=== PATIENT | female | born 1995 | race Caucasian/White ===

== ENCOUNTER 2020-01-13 17:14 | Emergency (ER) | payer OTHER, SELFPAY ==
--- NOTE | ~2020-01-13 | XR_ITS ---
EXAMINATION: XR knee RT 3V DATE: 01/13/2020 17:30 INDICATION: Right knee pain TECHNIQUE: Three views of the right knee were obtained. COMPARISON: None. FINDINGS: Alignment is normal. No fracture or osteochondral lesion. Joint spaces are normal with no e rosions. No joint effusion/synovitis. Soft tissues are unremarkable. IMPRESSION: 1. No acute osseous abnormality. Reviewed, dictated and finalized at location A.
[2020-01-13 17:36] VITALS: BP 127/60; PULSE 63; RESP 16; TEMP 36.6; O2SAT 100
--- NOTE | 2020-01-13 17:48 | ED.GENADULT ---
HPI - General Adult General Chief complaint: Extremity Injury, Lower Stated complaint: RT KNEE PAIN Time Seen by Provider: 01/13/20 17:49 Source: patient and RN notes reviewed Mode of arrival: ambulatory Limitations: no limitations History of Present Illness HPI narrative: 24-year-old female presents with complains of right medial knee pain for the past 4 days. Ice and elevation without relief. Ernestine says she was out at the dog park with a family member dog (60 pound pitbull and Occ[place] gonzalez mix) when it ran into the lateral portion of her RT knee when she heard a pop and noted pain and swelling. She continues to have pain to the medial area of the knee now. No radiation of pain. No numbness or tingling, or bleeding. No loss of mobility. Exacerbating factor consist of bearing weight and continuous walking. No fever or chills. Remains active. The patient reports she have not been diagnosed with COVID-19. The patient reports she is not waiting for the results of a COVID-19 lab test. The patient reports she do not have fever, chills, weakness, or fatigue. The patient reports she do not have a new or worsening cough or shortness of breath. Denies chest pain. The patient reports she do not have any rhinorrhea, congestion, sore throat, nausea, vomiting, abdominal pain, and diarrhea. Tolerating po intake well. Denies recent traveling. Denies concerns for COVID-19 or exposures been home with limited outdoor exposure except for essential household needs and return home. At this time, patient is not suspected of having COVID-19. Some parts of this dictation were generated by voice recognition software and may contain typographical and/or grammatical inaccuracies. Related Data Home Medications Medication Instructions Recorded Confirmed meloxicam 7.5 mg DAILY 01/13/20 01/13/20 Allergies Allergy/AdvReac Type Severity Reaction Status Date / Time No Known Allergies Allergy Verified 01/13/20 17:18 Review of Systems Review of Systems: Narrative: CONSTITUTIONAL: Denies fever, chills, sweats. EYES: Denies visual changes, redness, discharge. ENT: Denies rhinorrhea, congestion, sore throat, otalgia. CARDIOVASCULAR: Denies chest pain, palpitations, edema. RESPIRATORY: Denies dyspnea, wheezing, cough. GASTROINTESTINAL: Denies abdominal pain, nausea, vomiting, diarrhea. GENITOURINARY: Denies dysuria, hematuria, abnormal discharge SKIN: Denies rash or itching. MUSCULOSKELETAL: Denies acute back pain or myalgia. Complains of Right medial knee pain. NEUROLOGIC: Denies numbness or focal weakness. PSYCHIATRIC: Denies anxiety or depression. All other systems reviewed & are unremarkable except as noted in HPI and below. [facility] Past Medical History Medical History (Updated 01/14/20 @ 00:00 by Dori Meier) Knee pain Surgical History Surgical History (Updated 01/13/20 @ 17:58 by PITO Ross) History of arthroscopic knee surgery LT Knee Family History Family History (Updated 01/13/20 @ 18:00 by PITO Ross) Father Alive and well Mother Diabetes mellitus Hypertension Grandparent Breast cancer Arthritis Ovarian cancer Social History Social History (Updated 01/13/20 @ 18:00 by PITO Ross) Smoking status: Never smoker Alcohol intake: current Substance use: never Living arrangements: with family Occupation/Education: occupation Gender identity (if verbalized by the patient): Female Comments At time of signature, agree with nurse past medical, surgical, social, and family history. There is no relevant family history pertinent to the presenting complaint. Exam Narrative: Exam Narrative: GENERAL: This is a well-nourished, well-developed patient, in no apparent distress. Talks in full sentences and ambulates with steady gait without dyspnea. HEAD: normocephalic, atraumatic. EYES: PERRL. Sclera clear/white. Vision is grossly intact. CARDI
== END 2020-01-13 18:03 | disposition home or self-care (01) ==
PROVIDERS: Emergency Provider Nurse Practitioner Family
DX: S83.91XA Sprain of unspecified site of right knee, initial encounter (principal); W54.1XXA Struck by dog, initial encounter
CPT/HCPCS: 73562; 99213; G0463

== ENCOUNTER 2020-10-02 10:13 | Outpatient (CLI) | payer BC, MEDICAID, SELFPAY ==
--- NOTE | ~2020-10-02 | MR_ITS ---
EXAMINATION: MR knee LT wo con DATE: 10/02/2020 11:12 INDICATION: Left knee pain TECHNIQUE: Magnetic resonance imaging (MRI) of the left knee was performed without intravenous contra st. Sequences included coronal PD-weighted FSE, coronal PD-weighted FS FSE, sagittal T2-weighted FSE , sagittal PD-weighted FS FSE and axial PD weighted fat saturated FSE. COMPARISON: Left knee radiographs dated 09/21/2020 FINDINGS: Medial compartment: Medial meniscus is normal. Articular cartilage is normal. Lateral compartment: Lateral meniscus is normal. Articular cartilage is normal. Patellofemoral compartment: Deep chondral ulceration with mild underlying cortical irregularity and minimal subarticular cystic c hange at the inferior aspect of the lateral patellar facet. Chondral fissuring at the inferomedial as pect of the lateral trochlea and inferior aspect of the trochlear groove. Ligaments and tendons: Anterior and posterior cruciate ligaments are normal. The medial collateral ligament and fibular fide ateral ligament complex are normal. There is likely postoperative scarring with a few foci susceptibi lity artifact along the medial patellar retinaculum. Patellar tendon and quadriceps tendon are normal . The visualized medial and lateral hamstring tendons as well as the iliotibial band are normal. Fluid: Physiologic amount of fluid in the joint space. No loose osteochondral bodies identified. Osseous/other: Normal marrow signal centimeters noted mild subarticular changes at the lateral patellar facet. No fr acture or pathologic marrow replacing process. IMPRESSION: 1. 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 2. Postoperative changes along the medial patellar retinaculum. Correlate with surgical history. Reviewed, dictated and finalized at location B. IMPRESSION: 1. Mild patellofemoral osteoarthritis with high-grade chondromalacia the latera l patellar facet and moderate grade trochlear chondromalacia. 2. Postoperative changes along the medial patellar retinaculum. Correlate with surgical history.
== END 2020-10-02 10:14 | disposition home or self-care (01) ==
LOC: ANHIMG 10:19
PROVIDERS: Visit Provider Orthopaedic Surgery
DX: M17.12 Unilateral primary osteoarthritis, left knee (principal)
CPT/HCPCS: 73721

== ENCOUNTER → 2020-10-31 01:54 | Outpatient (CLI) | payer BC, SELFPAY ==
[2020-11-01 14:52] LABS: SARS-CoV-2 RNA PCR Negative
== END ==
PROVIDERS: Visit Provider Orthopaedic Surgery
DX: Z01.812 Encounter for preprocedural laboratory examination (principal); Z20.822 Contact with and (suspected) exposure to COVID-19
CPT/HCPCS: C9803; U0003; U0005

== ENCOUNTER 2020-11-04 01:15 | Day surgery (SDC) | payer BC, MEDICAID, SELFPAY ==
[2020-10-26 13:21] VITALS: BMI 34.0
[2020-11-04] VITALS (8 sets, daily range): BP systolic 112–137; BP diastolic 66–82; PULSE 50–71; RESP 12–16; TEMP 36.8–37.2; O2SAT 100
--- NOTE | 2020-11-04 07:21 | WPDHPUPDATE1 ---
History and Physical Update Update Date/Time: 11/04/20 07:21 History and Physical has been reviewed, including an updated exam of the patient. There are NO changes in the patient's condition. Risks, benefits, and alternatives have been discussed and questions answered. Patient agrees to proceed with procedure.
[2020-11-04] MEDS: CELECOXIB 200 MG CAPSULE PO (08:43)
[2020-11-04] MEDS: ACETAMINOPHEN 500 MG TABLET 1000 MG PO (08:43)
--- NOTE | 2020-11-04 08:50 | WPDANESEPPF ---
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 Patient Data Age: 25 Gender: F Height: 5 ft 4 in Weight: 90 kg Last Vital Signs Temp 36.8 C 11/04/20 08:31 Pulse 71 11/04/20 08:31 Resp 16 11/04/20 08:31 BP 137/81 11/04/20 08:31 Pulse Ox 100 11/04/20 08:31 Allergies Allergy/AdvReac Type Severity Reaction Status Date / Time No Known Allergies Allergy Verified 11/04/20 08:38 Home Medications Medication Instructions Recorded Confirmed Type drospirenone 3 mg-ethinyl 1 tablet PO DAILY 09/21/20 11/04/20 History estradiol 0.02 mg tablet Patient hx anesthesia problems: post op nausea/vomiting Family hx anesthesia problems: none PMFSH Past Medical History Medical History Arthritis GERD (gastroesophageal reflux disease) History of adverse reaction to anesthesia History of MRSA infection Knee pain Left knee pain Surgical History Surgical History History of arthroscopic knee surgery LT Knee 2010, 2015, 2015 History of tonsillectomy 2002 Family History Family History Father Alive and well Mother Diabetes mellitus Hypertension Grandparent Breast cancer Arthritis Ovarian cancer Social History Social History Smoking status: Never smoker Alcohol intake: never Substance use: never Substance use type: does not use Living arrangements: with family Gender identity (if verbalized by the patient): Female Sexual Orientation (if Verbalized by the Patient): Straight or Heterosexual Spiritual care concerns: No Anes - Eval Final PreProcedure Day of Procedure 11/04/20 08:50 Patient weight: obese Heart: regular rate and rhythm Lungs: clear to auscultation Airway: Mallampati scale class II Neurological: alert and oriented Last oral intake: >/= 8 hours ASA classification: II Emergent: no Anesthetic plan: proceed Anesthesia type and monitoring: general LMA and standard monitoring Informed Consent: The patient's anesthetic plan and its attendant risks and benefits were discussed with the patient/family/POA. Questions were solicited and answers provided to the satisfaction of the patient/family/POA.
[2020-11-04] MEDS: LACTATED RINGERS 1,000 ML 30 ML IV CONT (09:05)
[2020-11-04] MEDS: SCOPOLAMINE 1.5 MG PATCH TRANSDERM (09:06)
--- NOTE | 2020-11-04 10:28 | SUR.PREOP ---
pt informed delay in procedure.
[2020-11-04] MEDS: ceFAZolin 2 GM/D5W 50 ML 2 GM/50 ML BAG IVPB (12:00)
[2020-11-04] MEDS: BUPIVACAINE HCL 0.5% PF 30 ML VIAL INFILTRATE (12:35)
--- NOTE | 2020-11-04 13:06 | PM.PROC ---
Procedure Note - Detailed Date of procedure: 11/04/20 Pre-op diagnosis: left knee patella femoral chondromalachia Post-op diagnosis: same Procedure performed: LEFT KNEE SCOPE WITH CHONDROPLASTY, LATERAL RELEASE AND MINOR SYNOVECTOMY Description of procedure: PATIENT WAS TAKEN TO THE OR. LEFT LEG WAS PREPPED AND DRAPED STERILE. TROCARS WERE PLACED IN THE USUAL FASHION. CAMERA WAS INTRODUCED. THERE WAS SEVERE CHONDROMALACIA TO THE PATELLA FEMORAL JOINT. MOST OF THE LESION WAS ON THE PATELLAR SURFACE THERE WAS A LOT OF SYNOVITIS IN THIS COMPARTMENT WELL. THE MEDIAL COMPARTMENT SHOWED NO CHONDROMALACIA TO THE MED FEMORAL CONDYLE AND NO MEDIAL MENISCUS TEAR. THE ACL WAS INTACT. THE LATERAL MENISCUS WAS NOT TORN. THE LATERAL COMPARTMENT HAD NO CHONDROMALACIA. A SYNOVECTOMY WAS PREFORMED IN THE PATELLO FEMORAL JOINT THEN THE PATELLA AND TROCHLEA UNDERWENT CHONDROPLASTY. THE SURFACE WAS SMOOTH. PATELLO FEMORAL TRACKING WAS PREFORMED. THERE WAS SIGNIFICANT MAL TRACKING WITH THE LATERAL FACET TRACKING LATERAL TO THE TROCHLEA. A LATERAL RETINACULAR RELEASE WAS THEN PREFORMED FROM PROXIMAL TO DISTAL. TRACKING WAS RESTORED TO NEAR NORMAL WITH NO TILT. BLEEDERS WERE CAUTERIZED. THE INSTRUMENTS WERE REMOVED AFTER THOROUGH IRRIGATION OF THE KNEE JOINT. THE WOUNDS WERE APPROXIMATED WITH 4.0 NYLON. STERILE DRESSING WAS APPLIED. PATIENT WAS EXTUBATED. Anesthesia: GLMA Surgeon: Armando Morris MD Estimated blood loss (mL): 5 Complications: No immediate complications Condition: stable Disposition: PACU
[2020-11-04] MEDS: fentaNYL CITRATE INJ (*CRX) 100 MCG/2 ML VIAL 25 MCG IV PUSH ×7 (13:24→13:56)
[2020-11-04] MEDS: oxyCODONE HCL (*CRX) 5 MG TAB IR PO (14:22)
== END 2020-11-04 15:02 | disposition home or self-care (01) ==
PROVIDERS: Visit Provider Orthopaedic Surgery
PROC: (CPT 29870; principal; 2020-11-04 10:30)
DX: M94.262 Chondromalacia, left knee (principal); M65.862 Other synovitis and tenosynovitis, left lower leg; E66.9 Obesity, unspecified; Z68.34 Body mass index [BMI] 34.0-34.9, adult
CPT/HCPCS: 29873; A9270; J0690; J1100; J2250; J2405; J2704; J3010; J7120

== ENCOUNTER 2020-11-07 16:19 | Emergency (ER) | payer BC, MEDICAID, SELFPAY ==
[2020-11-07 16:27] VITALS: BP 179/87; PULSE 86; RESP 18; TEMP 36.3; O2SAT 100
--- NOTE | 2020-11-07 19:18 | ED.EXTPRO ---
HPI - Extremity Problem General Chief complaint: Extremity Problem,Nontraumatic Stated complaint: possible DVT on left leg Time Seen by Provider: 11/07/20 18:27 Source: patient Mode of arrival: ambulatory Limitations: no limitations History of Present Illness HPI Narrative: This is a 25-year-old female that presents the emergency department for left lower extremity swelling present since her recent surgery. Reports she had an arthroscopy on her left knee. Reports she has had swelling since the surgery, but today the swelling persisted even after elevating her leg. She called her orthopedic doctor who recommended she come to the ER to rule out a blood clot. Does also report pain in her calf. Denies fever, erythema, or warmth. Related Data Home Medications Medication Instructions Recorded Confirmed drospirenone 3 mg-ethinyl 1 tablet PO DAILY 09/21/20 11/07/20 estradiol 0.02 mg tablet aspirin 81 mg PO DAILY 11/07/20 11/07/20 Allergies Allergy/AdvReac Type Severity Reaction Status Date / Time No Known Allergies Allergy Verified 11/07/20 18:13 Review of Systems Review of Systems: Narrative: CONSTITUTIONAL: Denies fever SKIN: Denies rash MUSCULOSKELETAL: Reports joint pain, and myalgia. NEUROLOGIC: Denies numbness All systems reviewed & are unremarkable except as noted in HPI and below PMFSH Past Medical History Medical History Arthritis GERD (gastroesophageal reflux disease) History of adverse reaction to anesthesia History of MRSA infection Knee pain Left knee pain Surgical History Surgical History History of arthroscopic knee surgery LT Knee 2010, 2015, 2015 History of tonsillectomy 2002 Family History Family History Father Alive and well Mother Diabetes mellitus Hypertension Grandparent Breast cancer Arthritis Ovarian cancer Social History Social History Smoking status: Never smoker Alcohol intake: never Substance use: never Substance use type: does not use Gender identity (if verbalized by the patient): Female Spiritual care concerns: No Exam Narrative: Exam Narrative: GENERAL: Well-appearing, obese, and in no acute distress. HEAD: Normocephalic, atraumatic. EYES: EOMI. CHEST: Clear to auscultation. No respiratory distress. No wheezes rales or rhonchi HEART: Regular rate and rhythm. No murmur heard. Normal peripheral pulses. EXTREMITIES: Normal range of motion. Moderate edema about the left lower leg and into the foot. No erythema or warmth. Normal DP pulses. Normal sensation SKIN: Warm, dry, no rash. NEURO: No focal deficits. Alert and oriented x3. PSYCH: Normal mood and affect Course Vital Signs Vital signs: Vital Signs Temperature 97.4 F L 11/07/20 16:27 Pulse Rate 86 11/07/20 16:27 Respiratory Rate 18 11/07/20 16:27 Blood Pressure 179/87 H 11/07/20 16:27 Pulse Oximetry 100 11/07/20 16:27 Temperature 97.4 F L 11/07/20 16:27 Pulse Rate 61 11/07/20 19:23 Respiratory Rate 16 11/07/20 19:23 Blood Pressure 135/82 11/07/20 19:23 Pulse Oximetry 100 11/07/20 19:23 MDM - Extremity (Nontraumatic) MDM Narrative Medical decision making narrative: Patient presents the emergency department for left lower extremity edema and calf pain. She denies any chest pain or shortness of breath. Oxygen saturation is normal on room air. Her heart rate is normal. Recently had a arthroscopic surgery on the left knee. She is afebrile and nontoxic-appearing. Vitals are stable. No erythema or warmth of the leg to suggest infection. CBC is without leukocytosis. Metabolic panel without concerning findings. Her D-dimer was elevated. We will give her dose of Lovenox in the ED and set her up for an ultraso
[2020-11-07 19:23] VITALS: BP 135/82; PULSE 61; RESP 16; O2SAT 100
[2020-11-07 19:36] LABS: Basophils Percent Auto 0.3 % (0.2-1.2); Eosinophils Absolute Auto 0.1 K/mm3 (0-0.3); Hematocrit 39.4 % (37.0-47.0); Hemoglobin 13.1 g/dL (12.0-15.0); Immature Granulocyte Absolute 0.02 K/mm3 (0.00-0.031); Immature Granulocyte Percent A 0.2 % (0-0.5); Lymphocytes Absolute Auto 3.99 K/mm3 (0.9-3.2); Lymphocytes Percent Auto 40.9 % (18.3-44.2); Mean Corpuscular HGB Conc 33.2 g/dl (32-36); Mean Corpuscular Hemoglobin 29.8 pg (26-34); Mean Corpuscular Volume 89.7 fl (80-100); Mean Platelet Volume 9.7 fl (7.4-10.4); Monocytes Absolute Auto 0.5 K/mm3 (0.1-0.6); Neutrophils Absolute Auto 5.1 K/mm3 (1.3-6.7); Neutrophils Percent Auto 52.6 % (45.5-73.1); Platelet Count Result 398 k/mm3 (150-375); Red Blood Count 4.39 M/mm3 (4.2-5.4); Red Cell Distribution Width 12.6 % (11.5-14.5); White Blood Count 9.8 K/mm3 (4.5-10.0)
--- NOTE | 2020-11-07 19:39 | PC.NURSE ---
brooklynn states to hold lovenox until pt ddimer has resulted.
[2020-11-07 19:45] LABS: Anion Gap 8 mmol/L (8-16); Blood Urea Nitrogen 10 mg/dL (7-17); Calcium 9.4 mg/dL (8.4-10.2); Carbon Dioxide 23 mmol/L (22-30); Chloride 108 mmol/L (98-107); Estimated CRCL calculation 135 ml/min; Estimated Glomerular Filt Rate > 60; Glucose 87 mg/dL (65-105); Sodium 139 mmol/L (137-145)
[2020-11-07 19:46] LABS: INR 0.9
[2020-11-07 19:47] LABS: Partial Thromboplastin Time 22.2 SECONDS (22.3-36.8)
[2020-11-07 19:49] LABS: D Dimer 1.27 ug/mL (<0.48)
[2020-11-07] MEDS: ENOXAPARIN 100 MG/ML SYRINGE 90 MG SUB-Q (20:14)
[2020-11-07 20:40] VITALS: BP 131/75; PULSE 58; RESP 16; TEMP 36.7; O2SAT 100
== END 2020-11-07 20:42 | disposition home or self-care (01) ==
PROVIDERS: Physician Assistant; Emergency Provider Emergency Medicine
DX: M79.89 Other specified soft tissue disorders (principal); M19.90 Unspecified osteoarthritis, unspecified site; K21.9 Gastro-esophageal reflux disease without esophagitis
CPT/HCPCS: 36415; 80048; 85025; 85380; 85610; 85730; 96372; 99283; J1650

== ENCOUNTER 2020-11-08 07:22 | Outpatient (CLI) | payer BC, MEDICAID, SELFPAY ==
--- NOTE | ~2020-11-08 | US_ITS ---
US venous doppler [facility] DATE: 11/08/2020 08:17 INDICATION: Left calf pain and swelling. Recent left lateral patellar release. TECHNIQUE: Real-time and color flow imaging and Doppler analysis of the veins of the left lower extre mity COMPARISON: None FINDINGS: The left greater saphenous vein is patent. There is spontaneous and phasic flow and normal augmentation and color flow signal of the left common femoral, femoral, popliteal and peroneal veins in one of 2 paired posterior tibial veins. IMPRESSION: Deep venous thrombosis involving one of 2 paired posterior tibial veins Reviewed, dictated and finalized at Location A. Reviewed, dictated and finalized at location A. IMPRESSION: Deep venous thrombosis involving one of 2 paired posterior tibial v eins
== END 2020-11-08 07:23 | disposition home or self-care (01) ==
PROVIDERS: Visit Provider Orthopaedic Surgery
DX: M79.89 Other specified soft tissue disorders (principal); I82.442 Acute embolism and thrombosis of left tibial vein
CPT/HCPCS: 93971

== ENCOUNTER 2021-03-04 07:30 | Outpatient (RCR) | payer BC, MEDICAID, SELFPAY ==
--- NOTE | 2020-12-09 14:08 | PTOPEVAL ---
PHYSICAL THERAPY EVALUATION AND PLAN OF CARE Thank you for referring Ernestine James to [facility].? The patient is scheduled to be seen for therapy? 2x/week for 4 weeks. Please review, sign, date and return this plan of care ROMARIO. I agree with and certify that the following plan of care is medically necessary. Referring Physician Date Attending Provider: Armando Morris MD Evaluation Outpatient Past Medical History Cardiovascular History Hx Hypercholesterolemia Yes: ELEVATED LABS Respiratory History Hx Asthma Yes: IN CHILDHOOD Gastrointestinal History Hx Gastroesophageal Reflux Disease Yes Musculoskeletal History Hx Arthritis Yes: L KNEE Hx Orthopedic Surgery Yes: LT KNEE SCOPES X3 Hx Other Musculoskeletal Disorders Yes: LT PATELLA MISALIGNMENT, CARTILAGE WEAR Reproductive History Hx Other Reproductive Disorders Yes: PCOS Psychosocial History Hx Anxiety Yes Pain History History of Any Previous or Ongoing No Significant History Instance of Pain Anesthesia History Hx Post-Op Nausea/Vomiting Yes Diagnosis left arthroscopy with lateral release Subjective Information Ernestine is here today 1 Query Text:As Reported By Patient/ month s/p left knee Family arthroscopy with lateral release. States that the pain is at the bottom of the knee which happens when she going down stairs and when walking too much. States that when she does a lot of sit to stand or bending to straightening she feels the knee cap wanting to shift to the side. Self Report Pain Assessment Left Knee(s) Reported Pain Level 0 Pain Frequency Acute,Intermittent Lowest Pain Intensity 0 Greatest Pain Intensity 7 Pain Aggravating Factors Stair Climbing,Walking Pain Score Pain Score 0: Self Report Interventions Used Interventions Used By Clinicians Exercise,Taping Pain Relief Interventions Used By Medication Patient Other Alleviating Interventions ibuprofen, tylenol Lower Extremity Range of Motion Knee Range of Motion Left Knee Flexion Range of Motion - Active 122 Knee Extension Range of Motion - Active 0 Query Text: Lower Extremity Muscle Strength Testing Hip Strength Left Hip Flexion Strength 5 Normal Hip Extension Strength 4 Good Hip Abduction Strength 4 Good Hip Medial Rotation Strength 4 Good Hip Lateral Rotation Strength 4 Good Knee Strength
--- NOTE | 2021-01-11 11:46 | PTOPEVAL ---
PHYSICAL THERAPY PROGRESS REPORT AND PLAN OF CARE UPDATE Thank you for referring Ernestine James to [facility] [place].? The patient is scheduled to be seen for therapy?1-2x/week for 4 weeks. Please review, sign, date and return this plan of care ROMARIO. I agree with and certify that the following plan of care is medically necessary. Referring Physician Date Attending Provider: Armando Morris MD Progress Diagnosis left arthroscopy with lateral release Subjective Information Ernestine is here today 2 Query Text:As Reported By Patient/ month s/p left knee Family arthroscopy with lateral release. States that she has having pain in the tendons and there is popping in the tendon across the front of the knee that can be painful and uncomfortable. Straightening is better, but there is pain with bending now. Pain Assessment Timing of Pain Assessment Timing of Pain Assessment Re-assessment Self Report Self Report Pain Level 0 Campos-Martinez Campos-Martinez Pain Scale No Pain Pain Score Pain Score No Pain: Campos Martinez Lower Extremity Range of Motion Knee Range of Motion Left Knee Flexion Range of Motion - Active 129 Knee Extension Range of Motion - Active 0 Query Text: Lower Extremity Muscle Strength Testing Hip Strength Left Hip Flexion Strength 5 Normal Hip Extension Strength 4+ Good + Hip Abduction Strength 4 Good Hip Medial Rotation Strength 4+ Good + Hip Lateral Rotation Strength 4+ Good + Knee Strength Left Knee Flexion Strength 4+ Good + Knee Extension Strength 4+ Good + Knee Strength Comments good quad set Muscle Length Testing Muscle Length Testing Piriformis w/Hip Flexion >90 Degrees (R) Mild Tightness Tisha's Test Hip Muscle Length (R) Mild Tightness,(L) Moderate Tightness Left Hamstring Length -25 Query Text:(90 - 90 Position) Right Hamstring Length -25 Query Text:(90 - 90 Position) Palpation Assessment Palpation Palpation improved patellar mobility General Exercise General Exercises Side Left Exercise Location knee Exercise Type Active,Isometric,Resistive, Stretching Exercise Description -sitting piriformis stretch Query Text:Record Sets, Reps, [id number] each side Resistance, and Position - sidelying hip adduction [id number] - sumo squat with education on
--- NOTE | 2021-02-02 17:12 | PCPTNOTE ---
Patient called & cancelled scheduled appointment for tomorrow due to testing positive for COVID.
--- NOTE | 2021-03-04 08:25 | PTOPEVAL ---
PHYSICAL THERAPY PLAN OF CARE UPDATE AND PROGRESS REPORT Thank you for referring Ernestine James to [facility].? The patient is scheduled to be seen for therapy? 2x/week for 4 weeks. Please review, sign, date and return this plan of care ROMARIO. I agree with and certify that the following plan of care is medically necessary. Referring Physician Date Attending Provider: Armando Morris MD Progress Diagnosis left arthroscopy with lateral release Subjective Information Ernestine is here today 4 Query Text:As Reported By Patient/ month s/p left knee Family arthroscopy with lateral release. States that the most of the pain she has right now is at the patellar tendon. 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 Pain Score Pain Score 0: Self Report Lower Extremity Range of Motion Knee Range of Motion Left Knee Flexion Range of Motion - Active 130 Knee Extension Range of Motion - Active 0 Query Text: Lower Extremity Muscle Strength Testing Hip Strength Left Hip Flexion Strength 5 Normal Hip Extension Strength 5 Normal Hip Abduction Strength 4+ Good + Hip Medial Rotation Strength 5 Normal Hip Lateral Rotation Strength 5 Normal Knee Strength Left Knee Flexion Strength 5 Normal Knee Extension Strength 5 Normal Knee Strength Comments good quad set Palpation Assessment Palpation Palpation good patellar mobility - trigger points noted to lateral quad Gait Assessment Gait Pattern Assessment Gait Pattern Trendelenburg Gait Stair Climbing Assessment Stair Climbing Assessment Technique Alternating Steps Stair Climbing Direction Both Up and Down Stair Climbing Ability Independent Stair Climbing Comments states she is working to keep left femur in neutral position while descending stairs; mild decrease in quadriceps eccentric control General Exercise General Exercises Side Left Exercise Location knee Exercise Type Active,Resistive Exercise Description -standing hydrants with pelvic Query Text:Record Sets, Reps, rotation green band at knee - Resistance, and Position to be performed on both sides
--- NOTE | 2021-03-09 10:27 | PCPTNOTE ---
Patient called & cancelled scheduled appointment this date due to running behind from class and then got pulled over. Has attempted to call stated to have difficulty getting through.
--- NOTE | 2021-03-11 09:09 | PCPTNOTE ---
This treatment is being continued on visit number [id number]. Please see documentation on both accounts to view progress. Completed interventions, outcomes, and problems have been marked as Inactive to facilitate the copying of the Care plan routine for recurring accounts.
== END 2021-03-09 23:59 | disposition home or self-care (01) ==
LOC: ANHPT 07:30
PROVIDERS: Visit Provider Orthopaedic Surgery
DX: Z48.89 Encounter for other specified surgical aftercare (principal)
CPT/HCPCS: 97110; 97140; 97161

== ENCOUNTER 2021-03-09 15:12 | Outpatient (CLI) | payer BC, SELFPAY ==
--- NOTE | ~2021-03-09 | US_ITS ---
EXAMINATION: US venous doppler [facility] DATE: 03/09/2021 16:09 INDICATION: Acute embolism and thrombosis of unspecified deep veins TECHNIQUE: Valdez scale images without and with compression and Doppler images of the left lower extrem ity veins were obtained. COMPARISON: 11/08/2020 FINDINGS: The left common femoral vein, profunda femoral vein, femoral vein, popliteal vein, peroneal trunk, posterior tibial veins, and greater saphenous vein are patent. IMPRESSION: 1. Patent left lower extremity veins. No evidence of deep venous thrombosis. Reviewed, dictated and finalized at location A.
== END 2021-03-09 15:13 | disposition home or self-care (01) ==
LOC: ANHIMG 15:15
PROVIDERS: Visit Provider Nurse Practitioner
DX: I82.402 Acute embolism and thrombosis of unspecified deep veins of left lower extremity (principal)
CPT/HCPCS: 93971

== ENCOUNTER 2021-04-01 10:00 | Outpatient (RCR) | payer BC, SELFPAY ==
--- NOTE | 2021-03-11 09:08 | PCPTNOTE ---
The treatment documented on this account is a continuation of the treatment documented on visit number [id number]. Please see documentation on both accounts to view progress. The Plan of Care has been transitioned and updated within the new V#. I have addressed and agree with the discipline specific Problems, Interventions, and Goals for the current certification period. Completed interventions, outcomes, and problems have been marked as Inactive to facilitate the copying of the Care plan routine for recurring accounts.
--- NOTE | 2021-04-01 10:38 | PTOPEVAL ---
PHYSICAL THERAPY DISCHARGE NOTE Thank you for referring Ernestine James to [facility].? Please review, sign, date and return this plan of care ROMARIO. I agree with and certify that the following plan of care is medically necessary. Referring Physician Date Attending Provider: Armando Morris MD Discharge Diagnosis left arthroscopy with lateral release Subjective Information States that overall symptoms Query Text:As Reported By Patient/ are doing much better - there Family is some soreness in the tendon but it is ok. Stairs are more difficult and better when she has K-tape on the knee. The right knee is actually hurting more than the left - describes the pain to be medial and with walking and stairs - not with resting. Pain Assessment Timing of Pain Assessment Timing of Pain Assessment Assessment Self Report Self Report Pain Level 0 Pain Score Pain Score 0: Self Report Lower Extremity Muscle Strength Testing Hip Strength Left Hip Flexion Strength 5 Normal Hip Extension Strength 4+ Good + Hip Abduction Strength 5 Normal Knee Strength Bilateral Knee Flexion Strength 5 Normal Knee Extension Strength 5 Normal Muscle Length Testing Muscle Length Testing Left Hamstring Length -25 Query Text:(90 - 90 Position) Right Hamstring Length -25 Query Text:(90 - 90 Position) Palpation Assessment Palpation Palpation good patellar mobility - trigger points noted to lateral quad Gait Assessment Gait Pattern Assessment Gait Pattern No Deviations/Normal PT Clinical Summary Ernestine is a 25 yo female presenting to outpatient physical therapy s/p left knee arthroscopy and lateral release. She has met her goals at this time. She is independent in HEP and understands how to use leukotape and k-tape to assist in manageing pain. We will discharge from PT at this time . PT Services Indicated Yes Rehabilitation Potential Good Patient/Caregiver's Personal Goals for rehab well Rehabilitation Potential Barriers to Goal Achievements None [place]
== END 2021-04-02 08:43 | disposition home or self-care (01) ==
LOC: ANHPT 10:00
PROVIDERS: Visit Provider Orthopaedic Surgery
DX: Z48.89 Encounter for other specified surgical aftercare (principal); M23.92 Unspecified internal derangement of left knee
CPT/HCPCS: 97110

== ENCOUNTER 2021-07-01 15:50 | Emergency (ER) | payer BC, MEDICAID, SELFPAY ==
--- NOTE | ~2021-07-01 | XR_ITS ---
EXAMINATION: XR ankle RT min 3V EXAM DATE: 07/01/2021 16:09 INDICATION: Pain lat Rt ankle; twisted ankle 2 days ago. TECHNIQUE: Right ankle frontal, lateral and oblique projections obtained and reviewed. There is no p rior study for comparison. FINDINGS: The right ankle mortise appears intact. There are no acute fractures or dislocations iden tified. There is no subcutaneous gas. The soft tissue is unremarkable. There are no radiopaque fo reign bodies. IMPRESSION: No acute osseous findings. Reviewed, dictated and finalized at location A. UNITY ENGAGEMENT REPRESENTATIVE IMPRESSION: No acute osseous findings.
--- NOTE | 2021-07-01 15:56 | ED.LOWEXIN ---
HPI - Extremity Injury (Lower) General Chief Complaint: Extremity Injury, Lower Stated Complaint: R ankel pain Time Seen by Provider: 07/01/21 15:56 Source: patient and RN notes reviewed History of Present Illness HPI Narrative: Patient is a 26-year-old female who presents the urgent care with a right pain 2 days ago after she curb. Patient has placed ice on the ankle and use Tylenol/ibuprofen and elevation. Patient dates that her pain increases with weightbearing and flexion. No other acute complaints or injuries. No acute distress noted patient on the plan of care. Some parts of this dictation were generated by voice recognition software and may contain typographical and/or grammatical inaccuracies. Related Data Home Medications Medication Instructions Recorded Confirmed medroxyprogesterone 150 mg/mL mg IM 02/08/21 05/11/21 intramuscular syringe Allergies Allergy/AdvReac Type Severity Reaction Status Date / Time No Known Allergies Allergy Verified 05/25/21 13:06 Review of Systems Review of Systems: CONSTITUTIONAL: Denies fever, chills, or sweats. EYES: Denies visual changes, redness, or discharge. ENT: Denies rhinorrhea, congestion, sore throat, or otalgia. CARDIOVASCULAR: Denies chest pain, palpitations, or edema. RESPIRATORY: Denies cough or dyspnea. GASTROINTESTINAL: Denies abdominal pain, nausea, vomiting, or diarrhea. GENITOURINARY: Denies dysuria or hematuria. SKIN: Denies rash or itching. MUSCULOSKELETAL: Reports of right ankle pain NEUROLOGIC: Denies headache, numbness, or weakness. All other systems reviewed are negative, except as documented in HPI. [facility] Past Medical History Medical History Anxiety Arthritis Chronic headache disorder DVT (deep venous thrombosis) GERD (gastroesophageal reflux disease) History of adverse reaction to anesthesia History of MRSA infection Knee pain Polycystic ovarian syndrome Surgical History Surgical History History of arthroscopic knee surgery LT Knee 2010, 2015, 2015 History of tonsillectomy 2002 Family History Family History Father Thyroid disorder Mother Diabetes mellitus Hypertension Grandparent Breast cancer Arthritis Ovarian cancer Sibling Depression Anxiety Thyroid disorder Social History Social History Smoking status: Never smoker Alcohol intake: current Alcohol use details: occasional Substance use: never Substance use type: does not use 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 There is no relevant family history pertinent to the patient complaint. Exam Narrative: GENERAL: This is a well-nourished, well-developed patient, in no apparent distress. HEAD: normocephalic, atraumatic. EYES: PERRL. Sclera clear/white. Vision is grossly intact. EARS: External ears normal NOSE: External nose normal with no obvious nasal discharge, nares without redness, no rhinorrhea. THROAT: Mucous membranes moist, posterior pharynx clear. NECK: Neck supple CARDIOVASCULAR: Regular rate and rhythm without murmurs, gallops, or rubs. RESPIRATORY: Clear to auscultation. Breath sounds equal bilaterally. No wheezes, rales, or rhonchi. SKIN: warm, intact with no suspicious lesions or rash, good texture and turgor. NEURO: awake, alert, and oriented to person, place and time. There were no obvious focal neurologic abnormalities. EXTREMITIES: No obvious edema, ecchymosis or erythema noted to the right malleolus
[2021-07-01 15:58] VITALS: BP 151/76; PULSE 91; RESP 16; TEMP 36.7; O2SAT 100
== END 2021-07-01 16:42 | disposition home or self-care (01) ==
PROVIDERS: Emergency Provider Nurse Practitioner Family; PCP Family Medicine
DX: S93.401A Sprain of unspecified ligament of right ankle, initial encounter (principal); S96.911A Strain of unspecified muscle and tendon at ankle and foot level, right foot, initial encounter; X58.XXXA Exposure to other specified factors, initial encounter; M19.90 Unspecified osteoarthritis, unspecified site; Z86.718 Personal history of other venous thrombosis and embolism; K21.9 Gastro-esophageal reflux disease without esophagitis; Z86.14 Personal history of Methicillin resistant Staphylococcus aureus infection; E28.2 Polycystic ovarian syndrome
CPT/HCPCS: 73610; 99213; G0463

== ENCOUNTER 2021-12-04 12:32 | Emergency (ER) | payer BC, SELFPAY ==
--- NOTE | ~2021-12-04 | US_ITS ---
EXAMINATION:US venous doppler LE LT INDICATION:Left calf pain TECHNIQUE: Multiple grayscale, color flow and Doppler images of the left lower extremity deep venous systems were obtained and reviewed. COMPARISON:Ultrasound dated 03/09/2021 FINDINGS: The common femoral, superficial femoral and popliteal veins demonstrate normal respiratory variation, augmentation and compressibility. Color flow is also seen within the posterior tibial, pe roneal, greater saphenous and profunda veins. IMPRESSION: 1: No lower extremity deep venous thrombosis. Reviewed, dictated and finalized at location A.
[2021-12-04 12:33] VITALS: BP 129/77; PULSE 71; RESP 18; TEMP 36.6; O2SAT 100
--- NOTE | 2021-12-04 12:46 | ED.EXTPRO ---
HPI - Extremity Problem General Chief complaint: Extremity Problem,Nontraumatic Stated complaint: left calf pain Time Seen by Provider: 12/04/21 12:37 Source: RN notes reviewed History of Present Illness HPI Narrative: Patient presents emergency department from home for left calf pain. Patient states she has been having left calf pain for the past 1 week. She states the pain is worse in the morning when she wakes up and feels like the calf is cramping she still has some residual pain on the left posterior knee patient states that she became concerned about a DVT as she does have a history of a DVT 1 year ago postsurgery on her left leg she states she has no longer on any blood thinners she denies any fevers or chills chest pain shortness of breath or any other symptoms she notes mild swelling of her left leg Related Data Allergies Allergy/AdvReac Type Severity Reaction Status Date / Time amoxicillin Allergy Ulcers Verified 12/04/21 12:51 Review of Systems Review of Systems: Gen.: Denies fevers or chills Respiratory: Denies shortness of breath CV: Denies chest pain or palpitations GI: Denies abdominal pain nausea, emesis Musculoskeletal: See HPI Neuro: Denies numbness, tingling, weakness or focal weakness Skin: Denies rash Except as documented, all other systems reviewed and negative [facility] Past Medical History Medical History Anxiety Arthritis Chronic headache disorder DVT (deep venous thrombosis) GERD (gastroesophageal reflux disease) History of adverse reaction to anesthesia History of MRSA infection Knee pain Polycystic ovarian syndrome Surgical History Surgical History History of arthroscopic knee surgery LT Knee 2010, 2015, 2015 History of tonsillectomy 2002 Family History Family History Father Thyroid eye disease Mother Diabetes mellitus Hypertension Grandparent Breast cancer Arthritis Ovarian cancer Sibling Depression Anxiety Thyroid disorder Social History Social History Smoking status: Never smoker Alcohol intake: current Alcohol use details: occasional Substance use: never Substance use type: does not use 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 CARDIOVASCULAR: Regular rate and rhythm without murmurs rubs or gallops. ABDOMINAL: Soft, nontender, MUSCULOSKELETAl: Moves all extremities. No clubbing, cyanosis or edema. Mild tenderness palpation of the left calf no tenderness left knee or ankle full range of motion of both dorsalis pedis pulse 2+ neurovascular intact NEURO: Awake and alert. Following commands, speech normal, no focal deficits SKIN:: Warm, dry. No rashes lesions or abrasions PSYCHIATRIC: Normal affect/mood, Course Course Emergency Course: Discussed with patient results of workup and diagnosis. Discussed need for follow-up with primary care, proper use of medication, and reasons to return to the emergency department. Patient understands and agrees to current treatment plan Vital Signs Vital signs: Vital Signs Temperature 97.9 F 12/04/21 12:33 Pulse Rate 71 12/04/21 12:33 Respiratory Rate 18 12/04/21 12:33 Blood Pressure 129/77 12/04/21 12:33 Pulse Oximetry 100 12/04/21 12:33 Oxygen Delivery Room Air 12/04/21 12:33 Temperature 97.9 F 12/04/21 12:33 Pulse Rate 71 12/04/21 12:33 Respiratory Rate 18
[2021-12-04 13:32] LABS: Basophils Percent Auto 0.3 % (0.2-1.2); Eosinophils Absolute Auto 0.1 K/mm3 (0-0.3); Eosinophils Percent Auto 1.3 % (0-4.4); Hematocrit 39.9 % (37.0-47.0); Hemoglobin 13.5 g/dL (12.0-15.0); Immature Granulocyte Absolute 0.03 K/mm3 (0.00-0.031); Immature Granulocyte Percent A 0.4 % (0-0.5); Lymphocytes Absolute Auto 2.86 K/mm3 (0.9-3.2); Lymphocytes Percent Auto 40.6 % (18.3-44.2); Mean Corpuscular HGB Conc 33.8 g/dl (32-36); Mean Corpuscular Hemoglobin 29.7 pg (26-34); Mean Corpuscular Volume 87.7 fl (80-100); Mean Platelet Volume 9.7 fl (7.4-10.4); Monocytes Absolute Auto 0.5 K/mm3 (0.1-0.6); Monocytes Percent Auto 7.1 % (2.6-8.5); Neutrophils Absolute Auto 3.6 K/mm3 (1.3-6.7); Neutrophils Percent Auto 50.3 % (45.5-73.1); Platelet Count Result 348 k/mm3 (150-375); Red Blood Count 4.55 M/mm3 (4.2-5.4); White Blood Count 7.1 K/mm3 (4.5-10.0)
[2021-12-04 13:41] LABS: Anion Gap 11 mmol/L (8-16); Blood Urea Nitrogen 20 mg/dL (7-17); Calcium 9.7 mg/dL (8.4-10.2); Carbon Dioxide 18 mmol/L (22-30); Chloride 109 mmol/L (98-107); Estimated CRCL calculation 102 ml/min; Estimated Glomerular Filt Rate > 60; Glucose 91 mg/dL (65-110); Magnesium 1.8 mg/dL (1.6-2.3); Potassium 3.7 mmol/L (3.4-5.0); Sodium 138 mmol/L (137-145)
== END 2021-12-04 14:01 | disposition home or self-care (01) ==
PROVIDERS: Emergency Provider Emergency Medicine; PCP Family Medicine
DX: M79.662 Pain in left lower leg (principal); K21.9 Gastro-esophageal reflux disease without esophagitis; E28.2 Polycystic ovarian syndrome; M19.90 Unspecified osteoarthritis, unspecified site; Z86.14 Personal history of Methicillin resistant Staphylococcus aureus infection; Z86.718 Personal history of other venous thrombosis and embolism
CPT/HCPCS: 36415; 80048; 81025; 83735; 85025; 93971; 99284

== ENCOUNTER → 2022-01-25 09:54 | Outpatient (CLI) | payer BC, SELFPAY ==
--- NOTE | ~2022-01-25 | US_ITS ---
EXAMINATION: US pelvic complete w TV DATE: 01/25/2022 10:13 INDICATION: Pelvic pain Comparison:Ultrasound dated 12/12/2018 TECHNIQUE: Multiple transabdominal and endovaginal sonographic images of the pelvis performed. FINDINGS: The uterus measures 6.1 x 3.5 x 3.4 cm. The endometrial complex measures 5 mm. The right ovary measures 2.6 x 1.3 x 1.8 cm and the left ovary measures 4 x 2.6 x 3.4 cm. There is a left ovarian cyst measuring 3.5 cm. There are small follicles in each ovary. Normal doppler signal in both ovaries. There is no free fluid in the pelvis. There are no abnormal masses seen on either side. IMPRESSION: 1. Left ovarian cyst measuring 3.5 cm. Reviewed, dictated and finalized at location A.
== END ==
PROVIDERS: Visit Provider Nurse Practitioner
DX: R10.2 Pelvic and perineal pain (principal); N83.202 Unspecified ovarian cyst, left side
CPT/HCPCS: 76830; 76856

== ENCOUNTER → 2022-03-09 15:19 | Outpatient (CLI) | payer BC, SELFPAY ==
--- NOTE | ~2022-03-09 | US_ITS ---
EXAMINATION: US transvaginal DATE: 03/09/2022 15:41 INDICATION: Unspecified ovarian cyst, left side follow-up. TECHNIQUE: Multiple transabdominal and endovaginal sonographic images of the pelvis were obtained. COMPARISON: 01/25/2022 FINDINGS: Uterus: 6.5 x 2.6 x 3.4 cm. Endometrial complex measures 6 mm. Right Ovary: 2.9 x 2.0 x 1.9 cm. Vascular flow is present. Dominant follicle. Left Ovary: 3.6 x 1.9 x 2.5 cm. Vascular flow is present. 2.1 cm simple left ovarian cyst. There is no free fluid in the pelvis. IMPRESSION: Normal pelvic sonogram findings. Reviewed, dictated and finalized at location K.
== END ==
PROVIDERS: PCP Family Medicine; Visit Provider Obstetrics & Gynecology Gynecology
DX: N83.202 Unspecified ovarian cyst, left side (principal)
CPT/HCPCS: 76830

== ENCOUNTER → 2022-04-15 15:14 | Outpatient (CLI) | payer BC, SELFPAY ==
--- NOTE | ~2022-04-15 | US_ITS ---
EXAMINATION: US OB transvaginal DATE: 04/15/2022 15:34 INDICATION: Cramping. Early . TECHNIQUE: Real-time transvaginal pelvic ultrasound was performed. COMPARISON: Ultrasound 03/09/2022 FINDINGS: The uterus measures 5.7 x 4.3 4.4 cm. There is a fluid collection in the endometrial complex with me an diameter of 7 mm that may be a gestational sac. No yolk sac or pole is identified. The right ovary measures 2.2 x 1.4 x 1.6 cm. The left ovary measures 4.1 x 3.5 x 3.3 cm. There is physiologic free fluid in the pelvis. IMPRESSION: 1. 7 mm fluid collection in the endometrial complex that may be a gestational sac. Spontaneous abort ion and ectopic are not excluded. Serial beta hCGs are recommended. Reviewed, dictated and finalized at location A. IMPRESSION: 1. 7 mm fluid collection in the endometrial complex that may be a gestational sac. Spontaneous and ectopic are not excluded. Serial beta h CGs are recommended.
== END ==
PROVIDERS: PCP Family Medicine; Visit Provider Obstetrics & Gynecology Gynecology
DX: R10.2 Pelvic and perineal pain (principal)
CPT/HCPCS: 76817

== ENCOUNTER 2022-04-22 14:27 | Outpatient (RCR) | payer BC, SELFPAY | END 2022-07-19 23:59 | disposition home or self-care (01) | LOC: ANHLAB 14:27 | PROVIDERS: PCP Family Medicine; Visit Provider Obstetrics & Gynecology Gynecology | DX: Z36.87 Encounter for antenatal screening for uncertain dates (principal) | CPT/HCPCS: 36415; 84702 ==

== ENCOUNTER 2022-04-27 13:07 | Outpatient (CLI) | payer BC, SELFPAY ==
--- NOTE | ~2022-04-27 | US_ITS ---
EXAMINATION: US OB <=14 wk fetus w TV INDICATION: BHCGS INAPPROPRIATE FOR DATES TECHNIQUE: Sonography of the pelvis was performed by transabdominal and transvaginal techniques. COMPARISON: 04/15/2022. RESULT: Uterus: Orientation: Anteverted. 8.9 x 5.4 x 5.3 cm. Myometrium: homogeneous echogenicity . Gestation: - Intrauterine gestational sac: Single present - Yolk sac: Present, not directly measured. - Embryo: Single present. - [place] rump length: 0.6 cm, corresponding gestational age 6 weeks, 3 days. -Gestational heart rate: Present, 118 bpm. -Subgestational hematoma: 8 x 4 mm inferior collection. Right ovary: 2.7 x 1.9 x 1.1 cm. Normal sonographic appearance with physiologic follicles. Vascul ar flow is present. Left ovary: 4.6 x 3.0 x 4.5 cm. Multiple simple ovarian cysts, the largest measuring 4 cm. Vascula r flow is present. Pelvis free fluid: Small volume pelvic fluid, within physiologic range IMPRESSION: Single, live intrauterine gestation. 8 mm subgestational hematoma. 4 cm simple left ovarian cyst. Estimated Gestational Age: 6 weeks, 3 days by crown rump length. HUY by ultrasound 12/18/2022. Reviewed, dictated and finalized at location K. IMPRESSION: Single, live intrauterine gestation. 8 mm subgestational hematoma. 4 cm simple left ovarian cyst. Estimated Gestational Age: 6 weeks, 3 days by crown rump length. HUY by ultras ound 12/18/2022.
== END 2022-04-27 13:08 | disposition home or self-care (01) ==
PROVIDERS: PCP Family Medicine; Visit Provider Obstetrics & Gynecology Gynecology
DX: O28.1 Abnormal biochemical finding on antenatal screening of mother (principal); Z3A.01 Less than 8 weeks gestation of pregnancy
CPT/HCPCS: 76801; 76817

== ENCOUNTER 2022-05-06 15:01 | Outpatient (CLI) | payer BC, SELFPAY ==
--- NOTE | ~2022-05-06 | US_ITS ---
US OB <= 14 weeks fetus DATE: 05/06/2022 16:10 INDICATION: Assessment of viability TECHNIQUE: Real-time imaging and Doppler analysis transabdominal and transvaginal approaches COMPARISON: 04/27/2022 obstetrical ultrasound examination FINDINGS: Live castro intrauterine gestation, pole and yolk sac identified within a normally shaped gestational sac with normal surrounding hyperechogenicity consistent with normal decidual elia ction. heart rate of 159 bpm. Approximately 5 x 3.5 cm left ovarian cyst. Right ovary measures 2.2 x 1.4 x 1.0 cm. No pelvic mass or abnormal free pelvic fluid collection is n oted otherwise. IMPRESSION: Live castro intrauterine gestation Up to 3.5 by 5 cm left ovarian cyst Reviewed, dictated and finalized at Location A. Reviewed, dictated and finalized at location A. E PICKER
== END 2022-05-06 15:02 | disposition home or self-care (01) ==
PROVIDERS: PCP Family Medicine; Visit Provider Obstetrics & Gynecology Gynecology
DX: O36.80X0 Pregnancy with inconclusive fetal viability, not applicable or unspecified (principal); Z3A.00 Weeks of gestation of pregnancy not specified; N83.202 Unspecified ovarian cyst, left side
CPT/HCPCS: 76801

== ENCOUNTER → 2022-06-10 08:14 | Outpatient (CLI) | payer BC, SELFPAY ==
--- NOTE | ~2022-06-10 | US_ITS ---
EXAMINATION: US OB limited DATE: 06/10/2022 08:47 INDICATION: Subchorionic hematoma in the first trimester. TECHNIQUE: Real-time ultrasound of the pelvis was performed. COMPARISON: Ultrasound 05/06/2022, 04/27/22, 04/15/22 FINDINGS: TRANSABDOMINAL ULTRASOUND: There is a single fetus. TRANSVAGINAL ULTRASOUND: There is a 1.6 x 0.7 x 1.3 cm subchorionic hematoma. heart rate is 149 beats per minute (bpm). The amniotic fluid volume is subjectively normal. Right ovary measures 1.9 x 1.3 x 1.7 cm. Left ovary measures 5.3 x 3.1 x 2.8 cm. There is a 3.9 cm cyst in left ovary, likely a follicular cyst. IMPRESSION: 1. Single living intrauterine gestation with estimated date of delivery of 12/18/2022 based on the ul trasound from 04/27/2022. 2. Small subchorionic hematoma. 3. 3.9 cm cyst in left ovary, likely a follicular cyst. Reviewed, dictated and finalized at location A. D REP IMPRESSION: 1. Single living intrauterine gestation with estimated date of delivery of 11/25 based on the ultrasound from 04/27/2022. 2. Small subchorionic hematoma. 3. 3.9 cm cyst in left ovary, likely a follicular cyst.
== END ==
PROVIDERS: PCP Family Medicine; Visit Provider Advanced Practice Midwife
DX: O36.8910 Maternal care for other specified fetal problems, first trimester, not applicable or unspecified (principal); Z3A.00 Weeks of gestation of pregnancy not specified; N83.202 Unspecified ovarian cyst, left side
CPT/HCPCS: 76815

== ENCOUNTER → 2022-07-12 16:04 | Outpatient (CLI) | payer BC, SELFPAY ==
--- NOTE | ~2022-07-12 | US_ITS ---
EXAMINATION: US OB limited DATE: 07/12/2022 16:24 INDICATION: Subchorionic hematoma. Second trimester. TECHNIQUE: Real-time ultrasound of the pelvis was performed. COMPARISON: Ultrasound 08/11/2021 FINDINGS: There is a single fetus in vertex presentation. The placenta is anterior and abuts the cervix. There is no subchorionic hematoma. heart rate is 155 beats per minute (bpm). The amniotic fluid volu me is subjectively normal. Left ovary measures 5.4 x 3.6 x 3.2 cm and contains a 3.6 cm cyst with low -level echoes, likely a hemorrhagic cyst. IMPRESSION: 1. Single living fetus in vertex presentation. 2. Marginal placenta previa. Follow-up ultrasound is recommended in the third trimester. Reviewed, dictated and finalized at location A. TRICAL PARTS RECONDITIONER
== END ==
PROVIDERS: PCP Obstetrics & Gynecology Gynecology; Visit Provider Obstetrics & Gynecology Gynecology
DX: O99.412 Diseases of the circulatory system complicating pregnancy, second trimester (principal); Z3A.00 Weeks of gestation of pregnancy not specified
CPT/HCPCS: 76815

== ENCOUNTER → 2022-07-26 16:02 | Outpatient (CLI) | payer BC, SELFPAY ==
--- NOTE | ~2022-07-26 | US_ITS ---
EXAMINATION: US OB /maternal detail DATE: 07/26/2022 16:54 INDICATION: Second trimester anatomic survey TECHNIQUE: Real-time ultrasound of the pelvis was performed. COMPARISON: None. FINDINGS: There is a single living fetus in breech presentation. The placenta is anterior and 1.9 cm from the i nternal cervical os. heart rate is 142 beats per minute (bpm). cardiac activity and feta l movement are noted. The amniotic fluid index is subjectively normal. The outflow tracts of the heart are not well demonstrated. The following anatomy was identified as normal: 4 chamber heart 3 vessel cord cord insertion kidneys urinary bladder stomach spine diaphragm ventricles cisterna magna cerebellum The following biometric data were obtained: Biparietal diameter (BPD): 4.6 cm; head circumference (HC): 17.9 cm; abdominal circumference (AC): 13 .9 cm; femur length (FL): 3.2 cm. The head circumference to abdominal circumference ratio is greater than two standard deviations above the mean. These measurements are otherwise concordant. Estimated weight is 306 g +/- 45 g, which correlates with the 43rd percentile when 12/15/2022 is used as estimated date of delivery. As single measurements, these parameters are each equal to the following estimated gestational ages w ith ranges of +/- 2 standard deviations: BPD: 20 weeks 0 days ( 18 weeks 2 days - 21 weeks 5 days). HC: 20 weeks 3 days ( 19 weeks 0 days - 21 weeks 6 days). AC: 19 weeks 2 days ( 17 weeks 2 days - 21 weeks 3 days). FL: 19 weeks 6 days ( 18 weeks 1 days - 21 weeks 5 days). estimated gestational age based solely on measurements from this exam is 19 weeks 6 days +/- 1 weeks 3 days. IMPRESSION: 1. Single living fetus in breech presentation. 2. Estimated weight is 306 g +/- 45 g, which correlates with the 43rd percentile when 12/15/2022 is used as estimated date of delivery. 3. Low-lying placenta. 4. Head circumference to abdominal circumference ratio greater than two standard deviations above the mean. 5. Outflow tracts of the heart not well demonstrated. Reviewed, dictated and finalized at location B. ANOLOGY TEACHER IMPRESSION: 1. Single living fetus in breech presentation. 2. Estimated weight is 306 g +/- 45 g, which correlates with the 43rd per centile when 12/15/2022 is used as estimated date of delivery. 3. Low-lying placenta. 4. Head circumference to abdominal circumference ratio greater than two standar d deviations above the mean. 5. Outflow tracts of the heart not well demonstrated.
== END ==
PROVIDERS: PCP Obstetrics & Gynecology Gynecology; Visit Provider Obstetrics & Gynecology Gynecology
DX: Z36.9 Encounter for antenatal screening, unspecified (principal); O44.42 Low lying placenta NOS or without hemorrhage, second trimester; Z3A.00 Weeks of gestation of pregnancy not specified
CPT/HCPCS: 76805

== ENCOUNTER 2022-09-14 16:58 | Emergency (ER) | payer BC, SELFPAY ==
[2022-09-14 17:02] VITALS: BP 133/59; PULSE 90; RESP 16; TEMP 36.8; O2SAT 100
--- NOTE | 2022-09-14 17:13 | ED.EXTPRO ---
HPI - Extremity Problem General Chief complaint: Extremity Problem,Nontraumatic Stated complaint: BILAT WRIST PAIN Time Seen by Provider: 09/14/22 17:18 Source: patient and RN notes reviewed Mode of arrival: ambulatory Limitations: no limitations History of Present Illness HPI Narrative: 27-year-old female who is 7 months presents with concern for bilateral wrist pain this started about a week ago. She reports the right wrist started a week ago the left 1st started a couple days ago. She denies injury or trauma. She denies redness, swelling, decreased strength constipation, range of motion. 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 Complaint: extremity pain Related Data Home Medications Medication Instructions Recorded Confirmed enoxaparin 40 mg/0.4 mL 40 mg subcut DAILY 09/14/22 09/14/22 subcutaneous syringe Allergies Allergy/AdvReac Type Severity Reaction Status Date / Time amoxicillin Allergy Ulcers Verified 09/14/22 17:17 Review of Systems Review of Systems: CONSTITUTIONAL: Denies malaise, chills, sweats, or fever. CARDIOVASCULAR: Denies chest pain, palpitations, or edema. RESPIRATORY: Denies cough or dyspnea. SKIN: Denies rash or itching, bruising, redness, swelling. MUSCULOSKELETAL: Reports bilateral radial wrist pain NEUROLOGIC: Denies numbness, weakness All systems reviewed & are unremarkable except as noted in HPI and below PMFSH Past Medical History Medical History Anxiety Arthritis Chronic headache disorder DVT (deep venous thrombosis) GERD (gastroesophageal reflux disease) History of adverse reaction to anesthesia History of MRSA infection Knee pain Polycystic ovarian syndrome Surgical History Surgical History History of arthroscopic knee surgery LT Knee 2010, 2015, 2015 History of tonsillectomy 2002 Family History Family History Father Thyroid eye disease Graves disease Mother Diabetes mellitus Hypertension Grandparent Breast cancer Arthritis Ovarian cancer Sibling Depression Anxiety Thyroid disorder Social History Social History (System 04/27/22 @ 12:29 by Cyndi Poe) Social History: Caffeine- 2-3 times per week Smoking status: Never smoker Alcohol intake: current Alcohol use details: occasional Substance use: never Substance use type: does not use Living arrangements: with family Occupation/Education: occupation 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 There is no relevant family history pertinent to the presenting complaint Exam Narrative: GENERAL: Well-appearing, well-nourished, and in no acute distress. HEAD: Normocephalic, atraumatic. EYES: PERRLA, conjunctivae clear NECK: Supple. CHEST: Speaks in full sentences. No respiratory distress. HEART: Regular rate and rhythm. Normal and equal peripheral pulses. EXTREMITIES: Right and Left hand and digits of hand have normal strength and sensation. 5/5 strength with digit flexion, extension. Range of motion normal. No clubbing, cyanosis, or edema noted. No tenderness. Skin intact. Normal digital cascade with flexion of fingers, median, ulnar and radial nerve intact. Normal sensation of each side of finger. Can perform 'okay' sign, 'cross over finger test of index and middle fingers' and 'thumbs up' sign. No scissoring. Normal thumb opposition. Good capillary refill and radial pulse. Distal capillary refill less than 3 seconds. Patient is right hand dominant. Tinel's and Phalen test negative SKIN: Warm, dry, no rash. NEURO: Alert and o
== END 2022-09-14 17:30 | disposition home or self-care (01) ==
PROVIDERS: Emergency Provider Nurse Practitioner; PCP Nurse Practitioner
DX: M25.532 Pain in left wrist (principal); M25.531 Pain in right wrist; Z86.718 Personal history of other venous thrombosis and embolism
CPT/HCPCS: 99211; G0463

== ENCOUNTER 2022-09-24 07:37 | Outpatient (RCR) | payer BC, SELFPAY ==
[2022-09-24] MEDS: RHO(D) IMMUNE GLOBULIN 300 MCG/2 ML SYRINGE IM (07:52)
== END 2022-12-21 23:59 | disposition home or self-care (01) ==
LOC: ANHLAB 07:37
PROVIDERS: PCP Nurse Practitioner; Visit Provider Obstetrics & Gynecology Gynecology
DX: O36.0190 Maternal care for anti-D [Rh] antibodies, unspecified trimester, not applicable or unspecified (principal); Z3A.00 Weeks of gestation of pregnancy not specified; Z29.13 Encounter for prophylactic Rho(D) immune globulin
CPT/HCPCS: 36415; 85461; 86850; 86900; 86901; 90384; 96372; J2790

== ENCOUNTER 2022-10-27 10:30 | Outpatient (RCR) | payer BC, SELFPAY ==
--- NOTE | 2022-10-03 11:49 | OTOPEVAL1 ---
Assessment and note entered by Daya King, OTR/L Evaluation Information Assessment Status Evaluation Diagnosis R/L wrist pain Subjective Information Patient reports bilateral wrist pain which began in August, R worse than L. Patient reports pain is at the base of the thumbs over the 1rst dorsal compartment. Patient reports sharp pain when putting on a book bag or purse, writing, gripping/ twisting tasks, and some daily tasks including donning pants. Patient reports is also ~30 weeks and MD wants to manage symptoms of pain. Reported Pain Level Pain Score 0,1: Self Report Assessment OT Clinical Summary Ernestine is a 27 year old Female who presents to Outpatient OT for pain in bilateral thumbs. Patient reports pain is over the 1rst dorsal compartment of bilateral thumbs R worst than L. Pain is increased with gripping/grasping/twisting, picking up book bag, donning pants. Patient demonstrates a positive Finkelstien test bilaterally, R worse than L. Patient plans to buy pre fabricated thumb spica splints, discussed wearing schedule with patient and safety with orthosis, good verbalization of understanding. Patient would benefit from skilled OT for management of pain symptoms, use of modalities, splinting, UE exercise for improving functional use of UE hands. Plan of Care Interventions Therapeutic Exercise,Manual Therapy,Neuro Re- education,Therapeutic Activities,Hot Pack/Cold Pack,Check Out for Orthotic/Pr,Paraffin OT Services Indicated Yes Treatment Frequency and 1x/week for 4 weeks Duration These treatments will address the objective and functional deficits as defined above. The patient will be advanced safely and appropriately in order for the patient to progress towards his/her prior level of function. Additional exercises will be introduced and as well as a comprehensive home exercise program upon discharge, if needed, ?to ensure carryover of functional gains achieved in the clinic. This treatment plan has been reviewed and agreement upon by the patient.
--- NOTE | 2022-10-27 10:58 | OTOPDC ---
Assessment and note entered by Mickey Langford, OTR/L, CHT Discharge Information Assessment Status Discharge Diagnosis R/L wrist pain Subjective Information Patient reports reduced pain since starting therapy 3 weeks ago. She reports no longer having sharp pains when using her hands, but there continues to be a little achy pain still in bilateral wrists. Patient has been using Tylenol, ice, and massage for pain relief. Reports the massage has been helping the pain the most. Reported Pain Level Pain Score 0 - No pain at rest Additional Pain Score Comments Reports 4/10 pain in the right wrist when lifting her purse, but typically she has no pain. Very minimal pain in the left, occasional 1/10 aches, but overall doing well on left side. Assessment OT Clinical Summary Ernestine is a 27 year old Female who presents to outpatient OT for pain in bilateral thumbs. Pain is consistent with de Quervain's tenosynovitis. She has made excellent progress with conservative treatment - manual massage, ROM, and ice. She reports very minimal pain now. She never did obtain splints to wear as she saw good progress with other treatments. Educated on using splints if this were to return after her baby is born as this condition is common in new moms. She verbalizes excellent understanding of all materials. D/C with patient independent with [facility].
== END 2022-10-27 11:56 | disposition home or self-care (01) ==
LOC: ANHOT 10:30
PROVIDERS: PCP Nurse Practitioner; Visit Provider Nurse Practitioner
DX: M25.531 Pain in right wrist (principal); M25.532 Pain in left wrist
CPT/HCPCS: 97018; 97035; 97110; 97140; 97165

== ENCOUNTER 2022-11-21 13:14 | Outpatient (CLI) | payer BC, SELFPAY ==
[2022-11-21 14:03] VITALS: BP 136/79; PULSE 91
--- NOTE | 2022-11-21 14:05 | PC.NURSE ---
Dr Ordaz notified of negative ROM plus, no contractions and cat I tracing. OK to [place] home.
== END 2022-11-21 14:07 | disposition home or self-care (01) ==
PROVIDERS: PCP Nurse Practitioner; Visit Provider Obstetrics & Gynecology Gynecology
DX: O42.90 Premature rupture of membranes, unspecified as to length of time between rupture and onset of labor, unspecified weeks of gestation (principal); Z3A.00 Weeks of gestation of pregnancy not specified
CPT/HCPCS: 59025; 84112

== ENCOUNTER 2022-11-23 19:27 | Outpatient (CLI) | payer BC, SELFPAY ==
[2022-11-23] VITALS (7 sets, daily range): BP systolic 117; BP diastolic 68–76; PULSE 68–78; O2SAT 98–99
== END 2022-11-23 21:00 | disposition home or self-care (01) ==
LOC: ANHOBOP 20:05 → ANHLDR 20:05
PROVIDERS: PCP Nurse Practitioner; Visit Provider Obstetrics & Gynecology Gynecology
DX: O36.8190 Decreased fetal movements, unspecified trimester, not applicable or unspecified (principal); Z3A.00 Weeks of gestation of pregnancy not specified
CPT/HCPCS: 59025; 99199

== ENCOUNTER 2022-11-25 15:17 | Outpatient (CLI) | payer BC, SELFPAY ==
--- NOTE | 2022-11-25 16:01 | PC.NURSE ---
Dr Hart notified of BP, lab results and reactive nst. OK to wi home with 24 hour urine collection and supplied.
[2022-11-25 16:16] VITALS: BP 112/58; PULSE 75
[2022-11-25 16:24] LABS: Basophils Percent Auto 0.2 % (0.2-1.2); Eosinophils Absolute Auto 0.1 K/mm3 (0-0.3); Hematocrit 32.1 % (37.0-47.0); Hemoglobin 10.9 g/dL (12.0-15.0); Immature Granulocyte Absolute 0.24 K/mm3 (0.00-0.031); Immature Granulocyte Percent A 2.8 % (0-0.5); Lymphocytes Absolute Auto 1.82 K/mm3 (0.9-3.2); Lymphocytes Percent Auto 21.2 % (18.3-44.2); Mean Corpuscular Hemoglobin 31.5 pg (26-34); Mean Corpuscular Volume 92.8 fl (80-100); Mean Platelet Volume 10.9 fl (7.4-10.4); Monocytes Absolute Auto 0.5 K/mm3 (0.1-0.6); Monocytes Percent Auto 5.8 % (2.6-8.5); Neutrophils Absolute Auto 5.9 K/mm3 (1.3-6.7); Platelet Count Result 301 k/mm3 (150-375); Red Blood Count 3.46 M/mm3 (4.2-5.4); Red Cell Distribution Width 14.5 % (11.5-14.5); White Blood Count 8.6 K/mm3 (4.5-10.0)
[2022-11-25 16:29] LABS: Creatinine Urine 33.7 mg/dL; Total Protein Urine Random 17 mg/dL
[2022-11-25 16:31] VITALS: BP 115/64; PULSE 78
[2022-11-25 16:38] LABS: Appearance Urine Cloudy (Clear); Bacteria Urine 1+ /hpf; Bilirubin Urine Negative (Negative); Blood Urine Negative (Negative); Color Urine Yellow (Yellow); Glucose Urine UA Negative (Negative); Hyaline Casts Urine Present /lpf; Ketones Urine Negative (Negative); Leukocyte Esterase Ur Trace LEU/UL (NEGATIVE); Nitrate Urine Negative (Negative); Non Pathogenic Casts 0-2; Protein Urine Negative (Negative); RBC Urine 0-2 /hpf (0-2); Specific Grav Ur 1.007 (1.001-1.035); Squamous Epithelial Cell Urine Few /hpf (Few); Urobilinogen Urine 0.2 mg/dL (<2.0); pH Urine 6.5 (5.0-9.0)
[2022-11-25 16:39] LABS: Add Urine Microscopic? YES
[2022-11-25 16:40] LABS: Alanine Aminotransferase 20 U/L (6-35); Albumin Level 3.3 g/dL (3.5-5.1); Alkaline Phosphatase 126 U/L (38-126); Anion Gap 4 mmol/L (8-16); Aspartate Amino Transferase 24 U/L (14-36); Bilirubin,Total 0.2 mg/dL (0.2-1.3); Blood Urea Nitrogen 6 mg/dL (7-17); Calcium 8.2 mg/dL (8.4-10.2); Carbon Dioxide 22 mmol/L (22-30); Chloride 108 mmol/L (98-107); Estimated Glomerular Filt Rate > 60; Glucose 106 mg/dL (65-110); Potassium 3.7 mmol/L (3.4-5.0); Sodium 134 mmol/L (137-145); Uric Acid 4.6 mg/dL (2.5-7.5)
[2022-11-25 16:46] VITALS: BP 113/53; PULSE 75
[2022-11-25 17:04] VITALS: BP 112/58; PULSE 75
== END 2022-11-25 17:04 | disposition home or self-care (01) ==
LOC: ANHOBOP 15:23 → ANHOBPP 15:25
PROVIDERS: PCP Nurse Practitioner; Visit Provider Obstetrics & Gynecology Gynecology
DX: O13.3 Gestational [pregnancy-induced] hypertension without significant proteinuria, third trimester (principal); O42.919 Preterm premature rupture of membranes, unspecified as to length of time between rupture and onset of labor, unspecified trimester; Z3A.37 37 weeks gestation of pregnancy
CPT/HCPCS: 36415; 59025; 80053; 81001; 82570; 84112; 84156; 84550; 85025; 87086; 87088; 99199

== ENCOUNTER 2022-11-26 16:09 | Outpatient (NON) | payer BC, SELFPAY ==
[2022-11-26 16:14] VITALS: BMI 44.0
[2022-11-26 16:28] LABS: Collection Time Urine 24 HOURS
[2022-11-26 16:38] LABS: Specific Gravity Ur 1.011; Total Volume 24 Hour Urine 3200 ml
[2022-11-26 16:46] LABS: Creatinine Clearance Urine 179.2 ml/min (75-125); Creatinine Urine 51.7 mg/dL; Patient Weight 264 Lbs; Total Protein Urine Random 17 mg/dL
[2022-11-26 16:50] LABS: Total Protein Urine 24 Hr 544 mg/24hr (28-141)
== END 2022-11-26 16:10 | disposition home or self-care (01) ==
PROVIDERS: PCP Nurse Practitioner; Visit Provider Obstetrics & Gynecology Gynecology
DX: O13.9 Gestational [pregnancy-induced] hypertension without significant proteinuria, unspecified trimester (principal); Z3A.00 Weeks of gestation of pregnancy not specified
CPT/HCPCS: 81050; 82575; 84156

== ENCOUNTER 2022-11-28 11:13 | Inpatient (IN) | payer BC, SELFPAY ==
[2022-11-28] VITALS (93 sets, daily range): BP systolic 93–161; BP diastolic 36–124; PULSE 67–127; TEMP 36.6–37.1; O2SAT 99–100; BMI 44.0
--- NOTE | 2022-11-28 12:41 | WPDOBADMIT ---
Obstetrics - Admit Note Admission Note: record reviewed. No pertinent additions to the history and/or any subsequent changes in the physical findings that are not consistent with the expected course of the were found. Additions to the history and/or subsequent changes in the physical findings follow. Preeclampsia
--- NOTE | 2022-11-28 12:52 | WPDANESEPPF ---
Anes - Initial Pre Proc Eval Procedure: Labor epidural Date/Time: 11/28/22 12:52 Surgeon: Susanne Hart MD Pre Op Diagnosis: Abdominal pain with contractions Pre Op Diagnosis: IOL Patient Data Age: 27 Gender: F Height: Weight: Last Vital Signs Pulse 81 11/28/22 12:46 BP 120/70 11/28/22 12:46 Allergies Allergy/AdvReac Type Severity Reaction Status Date / Time amoxicillin Allergy Ulcers Verified 11/18/22 15:37 Home Medications Medication Instructions Recorded Confirmed Type enoxaparin 40 mg/0.4 mL 40 mg subcut DAILY 09/14/22 11/18/22 History subcutaneous syringe prenat.vits,edgar,jgq-oqtg-kscem 1 tablet PO DAILY 09/27/22 11/18/22 History ergocalciferol (vitamin D2) 1,250 1,250 mcg PO WEEKLY 11/18/22 11/18/22 History mcg (50,000 unit) capsule : gestational age HCG: positive Patient hx anesthesia problems: none Family hx anesthesia problems: none Results Review: All pre-operative results and documents have been reviewed as part of the pre-operative evaluation. [facility] Past Medical History Medical History Anxiety Arthritis Asthma Chronic headache disorder DVT (deep venous thrombosis) GERD (gastroesophageal reflux disease) History of adverse reaction to anesthesia History of MRSA infection Knee pain Migraine headache Morbid obesity Polycystic ovarian syndrome Preeclampsia and not yet delivered Surgical History Surgical History History of arthroscopic knee surgery LT Knee 2010, 2015, 2015 History of tonsillectomy 2002 Family History Family History Father Thyroid eye disease Graves disease Mother Diabetes mellitus Hypertension Grandparent Breast cancer Arthritis Ovarian cancer Sibling Depression Anxiety Thyroid disorder Social History Social History Social History: Caffeine- 2-3 times per week Smoking status: Never smoker Alcohol intake: current Alcohol use details: occasional Substance use: never Substance use type: does not use Lack of Transportation: No Lack of Food: Never True Current Housing: I Have Housing Concerned About Future Housing: No Difficulty Paying Gas/Electric Bills: No Difficulty Paying for Meds: No Currently Unemployed: No Education: Associate Degree Difficulty w/ Childcare or Family Care: No Living arrangements: with family Occupation/Education: occupation Additional occupation/education comments: [employer] Gender identity (if verbalized by the patient): Female Sexual Orientation (if Verbalized by the Patient): Straight or Heterosexual Spiritual care concerns: No Anes - Eval Final PreProcedure Day of Procedure 11/28/22 12:52 Patient weight: morbidly obese Airway: Mallampati scale class IV ASA classification: III Emergent: no Anesthetic plan: proceed Anesthesia type and monitoring: standard monitoring Results Review: All pre-operative results and documents have been reviewed as part of the pre-operative evaluation. Informed Consent: The patient's anesthetic plan and its attendant risks and benefits were discussed with the patient/family/POA. Questions were solicited and answers provided to the satisfaction of the patient/family/POA.
[2022-11-28 13:09] LABS: Basophils Percent Auto 0.3 % (0.2-1.2); Eosinophils Absolute Auto 0.1 K/mm3 (0-0.3); Eosinophils Percent Auto 0.6 % (0-4.4); Hematocrit 35.1 % (37.0-47.0); Hemoglobin 11.8 g/dL (12.0-15.0); Immature Granulocyte Absolute 0.26 K/mm3 (0.00-0.031); Immature Granulocyte Percent A 2.7 % (0-0.5); Lymphocytes Absolute Auto 1.87 K/mm3 (0.9-3.2); Lymphocytes Percent Auto 19.6 % (18.3-44.2); Mean Corpuscular HGB Conc 33.6 g/dl (32-36); Mean Corpuscular Hemoglobin 31.1 pg (26-34); Mean Corpuscular Volume 92.4 fl (80-100); Monocytes Absolute Auto 0.5 K/mm3 (0.1-0.6); Monocytes Percent Auto 5.2 % (2.6-8.5); Neutrophils Absolute Auto 6.8 K/mm3 (1.3-6.7); Neutrophils Percent Auto 71.6 % (45.5-73.1); Platelet Count Result 339 k/mm3 (150-375); Red Cell Distribution Width 14.5 % (11.5-14.5); White Blood Count 9.5 K/mm3 (4.5-10.0)
[2022-11-28 13:18] LABS: Alanine Aminotransferase 20 U/L (6-35); Albumin Level 3.8 g/dL (3.5-5.1); Alkaline Phosphatase 154 U/L (38-126); Anion Gap 8 mmol/L (8-16); Aspartate Amino Transferase 26 U/L (14-36); Bilirubin,Total 0.4 mg/dL (0.2-1.3); Blood Urea Nitrogen 4 mg/dL (7-17); Calcium 8.7 mg/dL (8.4-10.2); Carbon Dioxide 17 mmol/L (22-30); Chloride 108 mmol/L (98-107); Estimated CRCL calculation 226 ml/min; Estimated Glomerular Filt Rate > 60; Glucose 65 mg/dL (65-110); Potassium 3.9 mmol/L (3.4-5.0); Sodium 133 mmol/L (137-145); Uric Acid 5.2 mg/dL (2.5-7.5)
[2022-11-28 13:19] LABS: INR 0.9; Prothrombin Time 12.7 Seconds (11.1-14.7)
[2022-11-28 13:20] LABS: Partial Thromboplastin Time 24.6 SECONDS (22.3-36.8)
[2022-11-28] MEDS: miSOPROStol 25 MCG TABLET XX (13:25)
[2022-11-28] MEDS: LACTATED RINGERS 1,000 ML 125 ML IV CONT (21:26)
[2022-11-29] VITALS (196 sets, daily range): BP systolic 97–130; BP diastolic 36–107; PULSE 54–145; RESP 16–17; TEMP 36.4–37.4; O2SAT 66–100
[2022-11-29] MEDS: ONDANSETRON INJ 4 MG/2 ML VIAL IV PUSH (04:54)
[2022-11-29] MEDS: OXYTOCIN 30 UNITS/NS 500 ML 30 UNITS/500 ML BAG IV CONT (06:59)
--- NOTE | 2022-11-29 07:41 | PM.OBPNLAB ---
Pain Control Date/time seen: 11/29/22 07:35 Pain control: tolerating well and epidural Comments: CNM called for update at 0610. Pt 6cm with no cervical change. Ctx were q 3-5. Plan to start pitocin. Pelvic Exam Comments: RN recent exam 8-9cm Contractions Monitor mode: External Contraction frequency: 3 (2-4) Contraction duration: 60 Contraction pattern: Regular Contraction phase: Contraction Contraction intensity: Strong/Firm Status status: Category l Assessment and Plan Pitocin rate (mU/min): 2 Assessment: active labor and induction ongoing Plan: continuous present management Comments: Dr. Hart updated on pt progress.
[2022-11-29] MEDS: miSOPROStol 200 MCG TABLET 1000 MCG RECTAL (10:10)
--- NOTE | 2022-11-29 10:13 | PM.OBPRVD ---
OB - Delivery Note Procedure Delivery date: 11/29/22 Procedure: Events: Preeclampsia w/o severe features Induction method: Per Misoprostol Protocol and Per Pitocin Protocol Delivery monitor: External FHT and Internal Uterine Route of delivery: Laceration Description: Perineal - 2nd Degree Delivery repair: vicryl (3-0) Specimen: Yes (placenta) Quantitative Blood Loss (ml): 550 Anesthesia type: Epidural Disposition: Floor Complications: Mild uterine atony responded to massage and Pitocin. Several clots were manually cleared from the cervix. Patient was given Cytotec 1000mcg per rectum. [place] Baby Date of : 11/29/22 Weeks of gestation at delivery: 37 Weight (pounds): 7 Weight (ounces): 1 presentation: vertex position: Right Occiput Anterior Placenta delivery description: Spontaneous Cord Vessel Description: 3 Vessels and Delayed Cord Clamping score one minute: 8 score five minutes: 9
--- NOTE | 2022-11-29 10:16 | PM.OBDSVD ---
DS: Admitting Diagnosis Discharge Date 12/01/22 Admitting Diagnosis Intrauterine at 37 and 5 7th weeks preeclampsia DS: Discharge Diagnosis Discharge Diagnosis (1) Preeclampsia: Code(s): O14.90 - Unspecified pre-eclampsia, unspecified trimester Status: Acute (2) (normal spontaneous vaginal delivery): Code(s): O80 - Encounter for full-term uncomplicated delivery Status: Acute OB - DS: Summary OB Procedures : NST, PIH Mgmt and Ultrasound OB Procedures Intrapartum: Spontaneous Vag Delivery OB Procedures: : None Peripartum Data Delivery Method: Natural Vaginal Laceration Description: Perineal - 2nd Degree complications: none Status at Discharge Functional status at discharge: independent ambulation Overall status at discharge: patient is progressing back to baseline Time Spent with Patient Time attestation: Total time spent providing and/or coordinating discharge services: DS: Data Data Completed and Pending Labs on day of discharge: Labs from last 24 hours 11/28/22 11/28/22 11/28/22 12:54 12:49 12:49 WBC 9.5 RBC 3.80 L Hgb 11.8 L Hct 35.1 L MCV 92.4 MCH 31.1 MCHC 33.6 RDW 14.5 Plt Count 339 MPV 11.0 H Immature Gran % (Auto) 2.7 H Neut % (Auto) 71.6 Lymph % (Auto) 19.6 [place] % (Auto) 5.2 Eos % (Auto) 0.6 Baso % (Auto) 0.3 Lymph # (Auto) 1.87 [place] # (Auto) 0.5 Eos # (Auto) 0.1 Baso # (Auto) 0.0 Abs Immat Gran (auto) 0.26 H Absolute Neuts (auto) 6.8 H Absolute Nucleated RBC 0.0 Nucleated RBC % 0.0 PT 12.7 INR 0.9 APTT 24.6 Sodium 133 L Potassium 3.9 Chloride 108 H Carbon Dioxide 17 L Anion Gap 8 BUN 4 L Creatinine 0.40 L Estim Creat Clear Calc 226 Estimated GFR > 60 Glucose 65 Uric Acid 5.2 Cancelled Calcium 8.7 Total Bilirubin 0.4 AST 26 ALT 20 Alkaline Phosphatase 154 H Total Protein 7.0 Albumin 3.8 RPR Pending Blood Type AB Negative Antibody Screen Negative Discharge Plan Discharge Attending physician on discharge: Hailey,Susanne L. Discharging Clinician: Susanne Hart Anticipated Discharge Date/Time: 12/01/22 10:17 Patient Disposition: Home, Self-Care Activity: may shower and pelvic rest Diet: regular Discharge Instructions: Education: Mom and Baby Guide Given to: Mother Follow-Up: Call your delivering provider's office for an appointment to be seen in: 1 Week Mom and baby should come [facility] for the follow-up appointment. Appointment Date/Time: December 03, 2022 at 11:00 am What to expect at your follow-up visit: Blood Pressure Check Call [phone] if you are unable to keep your appointment time. BREAST CARE: * Wear a snug supportive bra. * For engorgement discomfort: Breast Feeding: * Apply warm moist washcloths * Express milk as needed to relieve engorgement * Wear loose clothing Bottle Feeding: * May apply ice packs * For sore nipples: * Identify correct latch-on * Apply warm moist washcloths before and after nursing * Air dry nipples after nursing * May apply Lansinoh cream to nipples PERINEAL CARE: * Until bleeding stops, use your ethan bottle after urinating * Change your pad frequently throughout the day * You may take sitz baths several times a day (fill your bathtub with warm water and soak for 20 minutes.) Do NOT bathe in the water * No tub baths until seen by your physician - You may shower ACTIVITY: * Rest as much as possible. * Do not exercise or lift anything heavier than your baby (such as laundry or other children.) * Avoid stairs or driving as much as possible. * Do not put anything into the vagina. No douching, tampons, or sexual activity until seen by physician. NOTIFY PHYSIC
[2022-11-29] MEDS: OXYTOCIN 30 UNITS/NS 500 ML 30 UNITS/500 ML BAG 125 UNITS IV CONT (10:29)
[2022-11-29] MEDS: ACETAMINOPHEN 325 MG TABLET 650 MG PO ×2 (10:52→23:26)
[2022-11-29 11:27] LABS: Rapid Plasma Reagin Non-Reactive (NonReactive)
[2022-11-29] MEDS: IBUPROFEN 600 MG TABLET PO ×2 (11:45→19:24)
--- NOTE | 2022-11-29 12:53 | OBPPTRN ---
Patient transferred to post room #276 via wheelchair. Support person present. Oriented to unit, room, information board, rooming in, admission packet and security measures. Patient verbalizes understanding.
--- NOTE | 2022-11-29 16:14 | PC.NURSE ---
[id number] Introductions were made, then consulted with patient to assess needs related to . Mother led the conversation with her?plans to feed?her infant and the?experience so far. Mother requested assistance. Mother works well with her infant with encouragement and education. Encouraged understanding of the benefits of skin to skin (demonstrating unwrapping and placing upright on her chest), stimulating with massage touch, changing positions to encourage wakefulness, how to watch for early feeding cues, responsive feeding, feeding on demand (aiming for 8-12 times in 24 hours, about every 2-3 hours), hand expression, milk production, building/maintaining a milk supply, duration of feeding, signs of adequate intake/output and how to record on the feeding sheet. Discussed with mother stimulation, possible nipple shield use, and stimulating the inverted nipples with her hand or pumping. After stimulating infant there was minimal feeding cues visualized. Hand expression produced a slight drop on the right breast with grade 2 invert, and left nipple is a grade 3 with no colostrum present at this time. Breast assessment visualizes 4-5 finger space with breast that appear type 2 hypoplasia. Once 37 week demonstrated feeding cues we reviewed positioning and ear, shoulder, hip alignment, supporting the breast to facilitate a deep latch, asymmetrical latch (off-center), leading with the chin with a big, open, wide gape and body close to mother. Using the teacup hold, infant opened wide, attempted to latch with no sucking. We reviewed the risk and benefits of nipple shield use. Nipple care reviewed with optimal latch and good positioning. Reviewed good handwashing when or touching the breast/nipples to prevent infection. Resources used to facilitate learning were used with the visual handouts and tool. Mother voiced understanding of skin to skin, stimulating with massage touch, responsive feedings, hand expressed colostrum, talking to infant to encourage if it has been 2 -2.5 hours since the start of the last , to call if infant does not latch, or if there is discomfort with . Resources provided for inpatient/outpatient with business card, feeding sheet and the mom/baby guide. Parents voiced understanding of information, demonstrated learning and will call if there is a request for assistance. Reported to the primary RN. [phone] RN purposefully rounded to assess needs for . Mother states infant will show feeding cues, then when moved to the breast will cry and not latch. Breast pump provided due to ineffective and to protect the milk supply. Instructions given on cleaning, care, usage, that there should be no pain, pumping schedule for milk production, collection, and storage of human milk. Parents are encouraged to record pumping schedule on the feeding sheet. Patient was assessed for correct placement, flange size, to pump for comfort and nipple stretching/stimulation for adequate milk production every 3 hours (8 times in 24 hours) 1-2 times at night. Mother voiced understanding of the education shared along with mom and baby guide for additional resource information. Reported to the primary RN.
[2022-11-29] MEDS: DOCUSATE SODIUM 100 MG CAPSULE PO (16:57)
[2022-11-30] VITALS (7 sets, daily range): BP systolic 101–138; BP diastolic 49–80; PULSE 79–94; RESP 17–19; TEMP 36.6–37.2; O2SAT 98–100
[2022-11-30] MEDS: IBUPROFEN 600 MG TABLET PO ×4 (02:59→22:05)
[2022-11-30 04:41] LABS: Hematocrit 24.8 % (37.0-47.0); Hemoglobin 8.2 g/dL (12.0-15.0)
[2022-11-30] MEDS: ACETAMINOPHEN 325 MG TABLET 650 MG PO ×3 (05:30→19:30)
--- NOTE | 2022-11-30 07:30 | PM.OBPNVD ---
OB - PN: Subj Subjective Date/time seen: 11/30/22 07:30 Patient comments: no complaints and pain well controlled baby status: doing well OB - PN: Obj Data Labs 11/30/22 04:36 11/28/22 12:49 Labs: Laboratory Results - last 24 hr 11/28/22 11/30/22 12:49 04:36 Hgb 8.2 L D Hct 24.8 L RPR Non-reactive Blood Type AB Negative Antibody Screen Negative Baby's Blood Type B pos Baby's LEON Negative OB - PN A/P Plan day: 1 Plan: routine care Comments: VSS No PIH Sx Time Spent With Patient Time: Total time spent is greater than 50% in coordination of care (as documented) at patient's floor/unit and/or counseling patient: Exam : Bimanual exam- vagina & uterus: other (Uterus firm, nt @U)
--- NOTE | 2022-11-30 09:00 | PC.NURSE ---
PT introductions made and plan of care discussed per post , pain management, breast feeding, pumping, supplementing, daily care activities. PIH symptoms, PT and spouse both recipients of such care and no barriers to learning at this time. PT received such instructions per one to one discussion, mom baby care guide and demonstrations this shift. PT verbalized understanding of such care.
[2022-11-30] MEDS: POLYSACCHARIDE IRON COMPLEX 150 MG CAPSULE PO ×2 (09:01→16:32)
[2022-11-30] MEDS: MULTIVIT/MIN/PREN/FOL AC/IRON TABLET 1 TAB PO (09:01)
[2022-11-30] MEDS: DOCUSATE SODIUM 100 MG CAPSULE PO ×2 (09:01→16:30)
[2022-11-30] MEDS: LANOLIN (LANSINOH) 7.5 GM CREAM 1 APPLIC TOPICAL (09:02)
[2022-11-30] MEDS: ENOXAPARIN 40 MG/0.4 ML SYRINGE SUB-Q (09:03)
--- NOTE | 2022-11-30 12:59 | PC.NURSE ---
Earlier today the Primary RN reported that mother has decided to pump and feed with no attempt to breastfeed. Infant is being supplemented with formula until the human milk supply transitions adequately to feed for growth.
--- NOTE | 2022-11-30 13:08 | WPDANLDPN2 ---
Anes-Prog Note L&D Date/Time: 11/30/22 13:08 Comfortable throughout: labor and delivery Neuraxial method: epidural Epidural/Spinal procedure site: clean & non-tender Neuro status: Neuro function grossly intact. Cardiovascular status: normal Respiratory status: normal Airway patency: baseline Mental status: baseline Post-Op hydration status: normal Vital Signs: Last Vital Signs Temp 37.2 C 11/30/22 08:12 Pulse 79 11/30/22 08:12 Resp 18 11/30/22 08:12 BP 117/49 L 11/30/22 08:12 Pulse Ox 99 11/30/22 08:12 O2 Del Method Room Air 11/29/22 16:00 Pain score (VAS): 2/10 I/O: Intake & Output 11/29/22 11/30/22 11/30/22 23:59 07:59 15:59 Intake Total 1450 840 Output Total 1650 1340 Balance -200 -500 Post-procedural complaints: none Patient feedback: Patient satisfied with anesthetic care.
[2022-12-01 02:00] VITALS: BP 138/89; PULSE 73; RESP 19; TEMP 36.4; O2SAT 99
[2022-12-01] MEDS: ACETAMINOPHEN 325 MG TABLET 650 MG PO ×2 (02:40→10:41)
[2022-12-01] MEDS: IBUPROFEN 600 MG TABLET PO (04:45)
--- NOTE | 2022-12-01 07:36 | PM.OBPNVD ---
OB - PN: Subj Subjective Date/time seen: 12/01/22 07:36 Patient comments: no complaints and pain well controlled baby status: doing well OB - PN: Obj Data Labs 11/30/22 04:36 11/28/22 12:49 Labs: Laboratory Results - last 24 hr 11/30/22 04:36 Blood Type AB Negative Antibody Screen Negative Screen Negative Baby's Blood Type B pos Baby's LEON Negative Doses of RhIg Required 1 OB - PN A/P Plan day: 2 Plan: routine care and other (plans POP for bc) Time Spent With Patient Time: Total time spent is greater than 50% in coordination of care (as documented) at patient's floor/unit and/or counseling patient: Exam : Bimanual exam- vagina & uterus: other (Uterus firm, nt @U)
--- NOTE | 2022-12-01 07:45 | PC.NURSE ---
PT introductions made and plan of care discussed per post , pain management, breast feeding, pumping, supplementing, daily care activities and pending discharge to home and PIH symptoms, PT and spouse both recipients of such care and no barriers to learning at this time. PT received such instructions per one to one discussion, mom baby care guide and demonstrations this shift. PT verbalized understanding of such care.
[2022-12-01 09:15] VITALS: BP 138/68; PULSE 69; RESP 18; TEMP 37.2; O2SAT 100
[2022-12-01 10:30] VITALS: PULSE 69; RESP 18; O2SAT 100
--- NOTE | 2022-12-01 10:30 | PC.NURSE ---
PT received discharge instructions per protocol and verbalized understanding of such care. Patient viewed the discharge video Mother & Baby Care, The First Two Weeks . Patient was given the opportunity and encouraged to ask questions. Patient verbalized understanding of information shared and has been given the mother/baby guide for home reference.
[2022-12-01] MEDS: POLYSACCHARIDE IRON COMPLEX 150 MG CAPSULE PO (10:41)
[2022-12-01] MEDS: MULTIVIT/MIN/PREN/FOL AC/IRON TABLET 1 TAB PO (10:41)
[2022-12-01] MEDS: ENOXAPARIN 40 MG/0.4 ML SYRINGE SUB-Q (10:42)
[2022-12-01] MEDS: DOCUSATE SODIUM 100 MG CAPSULE PO (10:43)
--- NOTE | 2022-12-01 11:10 | PC.NURSE ---
PT discharged to home ambulatory accompanied by spouse and and family and taken to waiting car. follow up appts confirmed
[2022-12-03 11:30] VITALS: BP 120/60; PULSE 91; RESP 20; TEMP 37.1; O2SAT 100
== END 2022-12-01 11:10 | disposition home or self-care (01) | DRG 807 ==
LOC: ANHLDR 11-29 10:18 → ANHOB2 11-29 13:01
PROVIDERS: Advanced Practice Midwife; Admitting Provider Obstetrics & Gynecology Gynecology; PCP Nurse Practitioner; Visit Provider Obstetrics & Gynecology Gynecology
DX: O14.04 Mild to moderate pre-eclampsia, complicating childbirth (principal); Z37.0 Single live birth; O70.1 Second degree perineal laceration during delivery; Z3A.37 37 weeks gestation of pregnancy
CPT/HCPCS: 36415; 59025; 80053; 81001; 81050; 82570; 82575; 84112; 84156; 84550; 85014; 85018; 85025; 85461; 85610; 85730; 86592; 86850; 86900; 86901; 87086; 88307; 90384; 99199; A9270; J1650; J2405; J2590; J2790; J2795; J7120

== ENCOUNTER 2022-12-07 10:31 | Outpatient (CLI) | payer BC, SELFPAY ==
--- NOTE | ~2022-12-07 | XR_ITS ---
EXAMINATION: XR chest 1V portable INDICATION: Shortness of breath TECHNIQUE: Portable AP chest at 1128 hours COMPARISON: None available FINDINGS: The lungs are free of acute opacities. No pleural effusion or pneumothorax. The cardiomedia stinal silhouette is normal. The visualized bones and soft tissues are unremarkable. IMPRESSION: 1. No acute cardiopulmonary abnormality. Reviewed, dictated and finalized at location A.
--- NOTE | 2022-12-07 19:49 | PC.NURSE ---
Paper documentation exists on this patient due to [employer] downtime on 12/07/22 during entire visit.
[2022-12-08 13:57] LABS: Alanine Aminotransferase 31 U/L (6-35); Anion Gap 8 mmol/L (8-16); Aspartate Amino Transferase 30 U/L (14-36); Bilirubin,Total 0.3 mg/dL (0.2-1.3); Blood Urea Nitrogen 9 mg/dL (7-17); Calcium 8.8 mg/dL (8.4-10.2); Carbon Dioxide 23 mmol/L (22-30); Chloride 108 mmol/L (98-107); Estimated Glomerular Filt Rate > 60; Glucose 75 mg/dL (65-110); Sodium 139 mmol/L (137-145); Total Protein 7.5 g/dL (6.3-8.2); Uric Acid 6.7 mg/dL (2.5-7.5)
[2022-12-08 13:58] LABS: Albumin Level 4.1 g/dL (3.5-5.1); Alkaline Phosphatase 112 U/L (38-126); Hematocrit 31.1 % (37.0-47.0); Hemoglobin 10.2 g/dL (12.0-15.0); Lymphocytes Percent Auto 19.6 % (18.3-44.2); Mean Corpuscular HGB Conc 32.8 g/dl (32-36); Mean Corpuscular Hemoglobin 31.1 pg (26-34); Mean Corpuscular Volume 94.8 fl (80-100); Mean Platelet Volume 9.5 fl (7.4-10.4); Neutrophils Percent Auto 66.4 % (45.5-73.1); Platelet Count Result 491 k/mm3 (150-375); Red Blood Count 3.28 M/mm3 (4.2-5.4); Red Cell Distribution Width 14.3 % (11.5-14.5); White Blood Count 10.6 K/mm3 (4.5-10.0)
[2022-12-08 13:59] LABS: Basophils Absolute Auto 0.1 K/mm3 (0.0-0.1); Basophils Percent Auto 0.5 % (0.2-1.2); Eosinophils Absolute Auto 0.4 K/mm3 (0-0.3); Eosinophils Percent Auto 3.6 % (0-4.4); Immature Granulocyte Absolute 0.43 K/mm3 (0.00-0.031); Lymphocytes Absolute Auto 2.08 K/mm3 (0.9-3.2); Monocytes Absolute Auto 0.6 K/mm3 (0.1-0.6); Monocytes Percent Auto 5.9 % (2.6-8.5); Neutrophils Absolute Auto 7.1 K/mm3 (1.3-6.7)
== END 2022-12-07 10:32 | disposition home or self-care (01) ==
LOC: ANHOBOP 19:58
PROVIDERS: Advanced Practice Midwife; PCP Nurse Practitioner; Visit Provider Obstetrics & Gynecology Gynecology
DX: O13.9 Gestational [pregnancy-induced] hypertension without significant proteinuria, unspecified trimester (principal); Z3A.00 Weeks of gestation of pregnancy not specified
CPT/HCPCS: 36415; 59025; 71045; 80053; 84550; 85025

== ENCOUNTER 2023-04-14 14:10 | Outpatient (CLI) | payer BC, SELFPAY ==
--- NOTE | ~2023-04-14 | US_ITS ---
EXAMINATION: US transvaginal DATE: 04/14/2023 15:19 INDICATION: 2 weeks of vaginal bleeding. Left pelvic pain Comparison:07/12/2019 TECHNIQUE: Multiple endovaginal sonographic images of the pelvis performed. FINDINGS: The uterus measures 7.5 x 4.2 x 3.9 cm. The endometrial complex measures 18 mm. The right ovary measures 3.4 x 2.1 x 1.9 cm and the left ovary measures 4.7 x 2.4 x 3.1 cm. There ar e small follicles in each ovary. Normal doppler signal in both ovaries. There are bilateral ovarian c yst measuring 2.4 cm on the right and 2.7 cm on the left. There is free fluid in the pelvis. There are no abnormal masses seen on either side. IMPRESSION: 1. Endometrial thickening measuring 1.8 cm. 2: Simple bilateral ovarian cysts, largest on the left measuring 2.7 cm. Reviewed, dictated and finalized at location A.
--- NOTE | ~2023-04-14 | US_ITS ---
US breast LT limited INDICATION: Palpable left breast lump TECHNIQUE: Dedicated left breast ultrasound COMPARISON: No prior studies for comparison. FINDINGS: The left breast is composed of normal heterogeneous echotexture without focal solid or cyst ic mass. IMPRESSION: 1: Normal left breast ultrasound. BI-RADS CATEGORY 1 - NEGATIVE Reviewed, dictated and finalized at location A.
== END 2023-04-14 14:11 | disposition home or self-care (01) ==
PROVIDERS: PCP Family Medicine; Visit Provider Nurse Practitioner Family
DX: R10.2 Pelvic and perineal pain (principal); N63.24 Unspecified lump in the left breast, lower inner quadrant; N83.201 Unspecified ovarian cyst, right side; N83.202 Unspecified ovarian cyst, left side
CPT/HCPCS: 76642; 76830

== ENCOUNTER 2023-10-23 12:22 | Emergency (ER) | payer BC, SELFPAY ==
--- NOTE | 2023-10-23 12:44 | ED.URI ---
HPI - URI/Sore Throat General Chief Complaint: Upper Respiratory Infection Stated Complaint: Sore Throat Time Seen by Provider: 10/23/23 12:50 Source: patient, RN notes reviewed and old records reviewed Mode of arrival: ambulatory Limitations: no limitations History of Present Illness HPI Narrative: 28 year old female who presents to [facility] care with complaints of sore throat, cough, headache and intermittent fevers since Monday. Patient reports that her recently diagnosed with strep. Patient reports that she was treated 2 weeks ago for double ear infection. Patient reports that she has been taking Tylenol for her discomfort and fevers. MD elicited complaint: cough and sore throat Pertinent past history: asthma Onset (ago): day(s) (3) Severity: moderate Able to tolerate fluids by mouth: Yes Treatments prior to arrival: acetaminophen Related Data Allergies Allergy/AdvReac Type Severity Reaction Status Date / Time amoxicillin Allergy Ulcers Verified 10/23/23 12:48 Review of Systems Review of Systems: CONSTITUTIONAL:Reports malaise, chills, sweats, or fever. EYES: Denies visual changes, redness, or discharge. ENT: Reports rhinorrhea, congestion, no sinus pain, otalgia and positive sore throat. CARDIOVASCULAR: Denies chest pain, palpitations, or edema. RESPIRATORY: Reports cough.? Denies dyspnea. GASTROINTESTINAL: Denies abdominal pain, nausea, vomiting, diarrhea SKIN: Denies rash or itching. MUSCULOSKELETAL: Denies myalgia. NEUROLOGIC: Reports headache. All systems reviewed & are unremarkable except as noted in HPI and below PMFSH Past Medical History Medical History Anxiety Arthritis Asthma Chronic headache disorder DVT (deep venous thrombosis) GERD (gastroesophageal reflux disease) History of adverse reaction to anesthesia History of MRSA infection Knee pain Migraine headache Morbid obesity Polycystic ovarian syndrome Preeclampsia and not yet delivered Sinusitis Surgical History Surgical History History of arthroscopic knee surgery LT Knee 2010, 2015, 2016 History of tonsillectomy 2002 Family History Family History Father Thyroid eye disease Graves disease Mother Diabetes mellitus Hypertension Grandparent Breast cancer Arthritis Ovarian cancer Sibling Depression Anxiety Thyroid disorder Social History Social History Social History: Caffeine- 2-3 times per week Smoking status: Never smoker Alcohol intake: current Alcohol use details: occasional Substance use: never Substance use type: does not use Lack of Transportation: No Lack of Food: Never True Current Housing: I Have Housing Concerned About Future Housing: No Difficulty Paying Gas/Electric Bills: No Difficulty Paying for Meds: No Currently Unemployed: No Education: Associate Degree Difficulty w/ Childcare or Family Care: No Living arrangements: with family Occupation/Education: occupation 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 There is no relevant family history pertinent to the presenting complaint Exam Narrative: GENERAL: Well-appearing, well-nourished, and in no acute distress. HEAD: Normocephalic EYES: PERRLA, conjunctivae clear ENT: Nares clear, turbinates edematous and erythematous, clear discharge. Mucous membranes moist Left TM red and bulging, right TM pearly ceja with dull light reflex; no tragal tenderness. Oropharynx eryt
[2023-10-23 12:49] VITALS: BP 131/69; PULSE 73; RESP 14; TEMP 36.8; O2SAT 100
== END 2023-10-23 13:00 | disposition home or self-care (01) ==
PROVIDERS: Emergency Provider Registered Nurse; PCP Nurse Practitioner Family
DX: H66.92 Otitis media, unspecified, left ear (principal); M19.90 Unspecified osteoarthritis, unspecified site; K21.9 Gastro-esophageal reflux disease without esophagitis; E66.01 Morbid (severe) obesity due to excess calories; Z68.41 Body mass index [BMI] 40.0-44.9, adult; E28.2 Polycystic ovarian syndrome; Z86.718 Personal history of other venous thrombosis and embolism; Z86.14 Personal history of Methicillin resistant Staphylococcus aureus infection
CPT/HCPCS: 87081; 87880; 99213; G0463

== ENCOUNTER 2023-11-22 14:40 | Emergency (ER) | payer BC, SELFPAY ==
[2023-11-22 14:46] VITALS: BP 106/79; PULSE 77; RESP 16; TEMP 36.7; O2SAT 100
--- NOTE | 2023-11-22 14:57 | ED.URI ---
HPI - URI/Sore Throat General Chief Complaint: Upper Respiratory Infection Stated Complaint: SORE THROAT/FEVER/HEADACHE Time Seen by Provider: 11/22/23 14:58 Source: patient and RN notes reviewed Mode of arrival: ambulatory Limitations: no limitations History of Present Illness HPI Narrative: 28-year-old female presents with concern for sore throat, headache, fever. Reports symptoms started 2 days ago. Reports she has the child in daycare. Reports her had strep 1 month ago. MD elicited complaint: sore throat Related Data Allergies Allergy/AdvReac Type Severity Reaction Status Date / Time amoxicillin Allergy Ulcers Verified 11/22/23 15:04 Review of Systems Review of Systems: CONSTITUTIONAL: Reports fever. EYES: Denies visual changes, redness, or discharge. ENT: Reports sore throat. CARDIOVASCULAR: Denies chest pain, palpitations, or edema. RESPIRATORY: Denies cough. Denies dyspnea. GASTROINTESTINAL: Denies abdominal pain, nausea, vomiting, diarrhea SKIN: Denies rash or itching. MUSCULOSKELETAL: Denies myalgia. NEUROLOGIC: Reports headache. All systems reviewed & are unremarkable except as noted in HPI and below PMFSH Past Medical History Medical History Anxiety Arthritis Asthma Chronic headache disorder DVT (deep venous thrombosis) GERD (gastroesophageal reflux disease) History of adverse reaction to anesthesia History of MRSA infection Knee pain Migraine headache Morbid obesity Polycystic ovarian syndrome Preeclampsia and not yet delivered Sinusitis Surgical History Surgical History History of arthroscopic knee surgery LT Knee 2010, 2015, 2016 History of tonsillectomy 2002 Family History Family History Father Thyroid eye disease Graves disease Mother Diabetes mellitus Hypertension Grandparent Breast cancer Arthritis Ovarian cancer Sibling Depression Anxiety Thyroid disorder Social History Social History Social History: Caffeine- 2-3 times per week Smoking status: Never smoker Alcohol intake: current Alcohol use details: occasional Substance use: never Substance use type: does not use Lack of Transportation: No Lack of Food: Never True Current Housing: I Have Housing Concerned About Future Housing: No Difficulty Paying Gas/Electric Bills: No Difficulty Paying for Meds: No Currently Unemployed: No Education: Associate Degree Difficulty w/ Childcare or Family Care: No Living arrangements: with family Occupation/Education: occupation 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 There is no relevant family history pertinent to the presenting complaint Exam Narrative: GENERAL: Well-appearing, well-nourished, and in no acute distress. HEAD: Normocephalic EYES: PERRLA, conjunctivae clear ENT: Nares clear. Mucous membranes moist. TM pearly ceja with sharp light reflex bilaterally; no tragal tenderness. Oropharynx erythematous without lesions. Tonsils not enlarged and without exudate, no drooling, no hoarseness, no trismus, uvula midline. NECK: Supple. No lymphadenopathy CHEST: Clear to auscultation, breath sounds equal. No wheezing, rhonchi, rales, or stridor. No respiratory distress, speaks in full sentences. HEART: Regular rate and rhythm. No murmur heard. SKIN: Warm, dry, no rash. NEURO: Alert and oriented x3. PSYCH: Normal mood and affect Course Course Emergency Course: Patient is aware of diagnosis, und
== END 2023-11-22 15:12 | disposition home or self-care (01) ==
PROVIDERS: Emergency Provider Nurse Practitioner; PCP Family Medicine
DX: J06.9 Acute upper respiratory infection, unspecified (principal); Z20.822 Contact with and (suspected) exposure to COVID-19; M19.90 Unspecified osteoarthritis, unspecified site; J45.909 Unspecified asthma, uncomplicated; K21.9 Gastro-esophageal reflux disease without esophagitis; E66.01 Morbid (severe) obesity due to excess calories; Z68.41 Body mass index [BMI] 40.0-44.9, adult; E28.2 Polycystic ovarian syndrome; Z86.718 Personal history of other venous thrombosis and embolism
CPT/HCPCS: 87081; 87426; 87804; 87880; 99213; G0463

== ENCOUNTER 2023-12-28 06:37 | Emergency (ER) | payer OTHER, SELFPAY ==
--- NOTE | ~2023-12-28 | XR_ITS ---
EXAMINATION: XR ankle RT min 3V DATE: 12/28/2023 07:25 INDICATION: Right ankle pain. Fall. TECHNIQUE: 4 views of right ankle were obtained. COMPARISON: None. FINDINGS: Bone alignment normal. No fracture. Joint spaces are normal. IMPRESSION: 1. No fracture. Reviewed, dictated and finalized at location E. IMPRESSION: 1. No fracture.
--- NOTE | ~2023-12-28 | XR_ITS ---
EXAMINATION: XR foot RT min 3V DATE: 12/28/2023 07:26 INDICATION: Right foot pain. Fall. TECHNIQUE: 4 views of right foot were obtained. COMPARISON: None. FINDINGS: Bone alignment is normal. No fracture. Joint spaces are normal. IMPRESSION: 1. No fracture. Reviewed, dictated and finalized at location E. IMPRESSION: 1. No fracture.
[2023-12-28 06:47] VITALS: BP 135/85; PULSE 71; RESP 18; TEMP 36.7; O2SAT 100
--- NOTE | 2023-12-28 07:32 | ED.GENADULT ---
HPI - General Adult General Chief complaint: Extremity Injury, Lower Stated complaint: Right ankle pain, rolled it in hole Time Seen by Provider: 12/28/23 07:09 History of Present Illness HPI narrative: Patient is 28-year-old female who presents emergency department with chief of right ankle pain. Patient reports that she rolled her ankle on 1st reports that she has pain in the midfoot reports that hurts whenever she ambulates worse with flexing foot. Patient reports she has prior history of severe ankle sprain which she had tendon injury Related Data Allergies Allergy/AdvReac Type Severity Reaction Status Date / Time amoxicillin Allergy Ulcers Verified 12/28/23 06:48 Review of Systems Review of Systems: A 10 system review of systems was completed on the patient and is negative except for what is stated in the HPI. Nursing and ancillary documentation was reviewed. [facility] Past Medical History Medical History Anxiety Arthritis Asthma Chronic headache disorder DVT (deep venous thrombosis) GERD (gastroesophageal reflux disease) History of adverse reaction to anesthesia History of MRSA infection Knee pain Migraine headache Morbid obesity Polycystic ovarian syndrome Preeclampsia and not yet delivered Sinusitis Surgical History Surgical History History of arthroscopic knee surgery LT Knee 2010, 2015, 2015 History of tonsillectomy 2002 Family History Family History Father Thyroid eye disease Graves disease Mother Diabetes mellitus Hypertension Grandparent Breast cancer Arthritis Ovarian cancer Sibling Depression Anxiety Thyroid disorder Social History Social History Social History: Caffeine- 2-3 times per week Smoking status: Never smoker Alcohol intake: current Alcohol use details: occasional Substance use: never Substance use type: does not use Lack of Transportation: No Lack of Food: Never True Current Housing: I Have Housing Concerned About Future Housing: No Difficulty Paying Gas/Electric Bills: No Difficulty Paying for Meds: No Currently Unemployed: No Education: Associate Degree Difficulty w/ Childcare or Family Care: No Living arrangements: with family Occupation/Education: occupation 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 HEAD: Normocephalic, atraumatic. EYES: PERRLA and EOMI. ENT: Nares clear, no rhinorrhea or epistaxis. Mucous membranes moist. NECK: Supple. CHEST: Clear to auscultation. No respiratory distress. HEART: Regular rate and rhythm. No murmur heard. Normal peripheral pulses. ABDOMEN: Soft, nontender, nondistended, normal active bowel sounds. EXTREMITIES: Normal range of motion. tenderness palpation on the lateral malleolus of the right ankle and base of the 5th metatarsal No edema. SKIN: Warm, dry, no rash. NEURO: No focal deficits. Alert and oriented x3. PSYCH: Normal mood and affect. Course Vital Signs Vital signs: Vital Signs Temperature 36.7 C 12/28/23 06:47 Pulse Rate 71 12/28/23 06:47 Respiratory Rate 18 12/28/23 06:47 Blood Pressure 135/85 12/28/23 06:47 Pulse Oximetry 100 12/28/23 06:47 Oxygen Delivery Room Air 12/28/23 06:47 Temperature 36.7 C 12/28/23 06:47 Pulse Rate 71 12/28/23 06:47 Respiratory Rate 18 12/28/23 06:47 Blood Pressure 135/85 12/28/23 06:47 Pulse Oximetry 100 12/28/23 06:47 Oxygen Delivery Room Air 12/28/23 0
[2023-12-28 07:50] VITALS: BP 115/74; PULSE 60; RESP 16; O2SAT 98
== END 2023-12-28 07:50 | disposition home or self-care (01) ==
LOC: ANHED 07:47
PROVIDERS: Emergency Provider Emergency Medicine; PCP Family Medicine
DX: S93.401A Sprain of unspecified ligament of right ankle, initial encounter (principal); S96.911A Strain of unspecified muscle and tendon at ankle and foot level, right foot, initial encounter; J45.909 Unspecified asthma, uncomplicated; E66.01 Morbid (severe) obesity due to excess calories; E28.2 Polycystic ovarian syndrome; Z68.41 Body mass index [BMI] 40.0-44.9, adult; K21.9 Gastro-esophageal reflux disease without esophagitis; M19.90 Unspecified osteoarthritis, unspecified site; F41.9 Anxiety disorder, unspecified; Z86.718 Personal history of other venous thrombosis and embolism; Z86.14 Personal history of Methicillin resistant Staphylococcus aureus infection; Z79.899 Other long term (current) drug therapy; X50.9XXA Other and unspecified overexertion or strenuous movements or postures, initial encounter
CPT/HCPCS: 73610; 73630; 99283

== ENCOUNTER 2025-01-04 12:08 | Emergency (ER) | payer SELFPAY ==
--- NOTE | ~2025-01-04 | XR_ITS ---
EXAMINATION: XR foot LT min 3V DATE: 01/04/2025 12:36 INDICATION: Pain at the fourth and fifth toes after kicking injury TECHNIQUE: Dorsoplantar, two oblique and lateral views of the left foot were obtained. COMPARISON: None. FINDINGS: Alignment is normal. No fracture. Joint spaces are normal. Bone island at the anterior calcaneus. Sof t tissues are unremarkable. IMPRESSION: 1. No acute osseous abnormality. Reviewed, dictated and finalized at location A.
--- NOTE | 2025-01-04 12:15 | ED_ITS ---
HPI - Extremity Injury (Lower) General Chief Complaint: Extremity Injury, Lower Stated Complaint: L TOE INJURY Time Seen by Provider: 01/04/25 12:44 Source: patient, RN notes reviewed and old records reviewed Mode of arrival: ambulatory Limitations: no limitations History of Present Illness HPI Narrative: 29-year-old female presents to the [facility] with complaints of toes 4 and 5. Pain after kicking her daughter by mistake. Swelling noted to the 5th toe. Related Data Allergies Allergy/AdvReac Type Severity Reaction Status Date / Time amoxicillin Allergy Ulcers Verified 12/28/23 06:48 Review of Systems Review of Systems: All systems reviewed & are unremarkable except as noted in HPI and below Constitutional: Constitutional: Reports no additional constitutional complaints Musculoskeletal: Musculoskeletal: Reports as per HPI Integumentary/Breasts: Skin/Breast: Reports system reviewed and no additional complaints, except as docu PMFSH Past Medical History Medical History Sinusitis Morbid obesity Preeclampsia and not yet delivered Migraine headache Asthma Chronic headache disorder DVT (deep venous thrombosis) Polycystic ovarian syndrome Anxiety Arthritis GERD (gastroesophageal reflux disease) History of adverse reaction to anesthesia History of MRSA infection Knee pain Surgical History Surgical History History of tonsillectomy 2003 History of arthroscopic knee surgery LT Knee 2010, 2015, 2016 Family History Family History Father Thyroid eye disease Graves disease Mother Diabetes mellitus Hypertension Grandparent Breast cancer Arthritis Ovarian cancer Sibling Depression Anxiety Thyroid disorder Social History Social History Social History: Caffeine- 2-3 times per week Smoking status: Never smoker Alcohol intake: current Alcohol use details: occasional Substance use: never Substance use type: does not use Lack of Transportation: No Lack of Food: Never True Current Housing: I Have Housing Concerned About Future Housing: No Difficulty Paying Gas/Electric Bills: No Difficulty Paying for Meds: No Currently Unemployed: No Education: Associate Degree Difficulty w/ Childcare or Family Care: No Living arrangements: with family Occupation/Education: occupation Additional occupation/education comments: [employer] Gender identity (if verbalized by the patient): Female Sexual Orientation (if Verbalized by the Patient): Straight or Heterosexual Spiritual care concerns: No Comments At the time of my signature, I reviewed and agree with the nursing past medical, surgical, social, and family history. There is no relevant family history pertinent to the patient complaint. Exam Const: General: cooperative, healthy appearing, comfortable, no acute distress, well developed, alert and well nourished Nutritional Appearance: well nourished and obese Orientation/consciousness: patient oriented x3 Limitations: no limitations HENMT: Head: normal to inspection Eyes: General: appearance normal, both eyes and all related structures Alignment and Position: alignment normal Neck: Neck: normal visual inspection, full ROM, no lymphadenopathy and no meningeal signs Chest: Chest palpation & inspection: normal inspection of the chest Resp: Effort & Inspection: normal respiratory effort and able to speak in complete sentences Cardio: Rate: regular rate Skin: General skin exam: normal color and no rashes or lesions noted Neuro: General: patient oriented x3, gait normal, moves all extremities and no meningeal signs Cognition (Neuro): normal cognition Speech: normal speech Gait exam (Neuro): Normal gait present Extrem: General: normal to inspection, full ROM, capillary refill normal and normal gait Left lower extremity: foot Details: tenderness (Fourth and 5th toe), vascular exam Details: dorsalis pedis pulse present and normal capillary refill and other (Minor swelling noted to the 5th toe); no unusual warmth and no ecchymosis Psych: Appearance: grossly normal and well kempt Mental Status: mental status grossly normal Speech and movement: Normal speech and movement present and Clear speech present Affect: normal affect Attitude: cooperative Course Course Level of Care: Express Care Visit Vital Signs Vital signs: Vital Signs Temperature 98.1 F 01/04/25 12:24 Pulse Rate 80 01/04/25 12:24 Respiratory Rate 16 01/04/25 12:24 Blood Pressure 114/68 01/04/25 12:24 Pulse Oximetry 100 01/04/25 12:24 Temperature 98.1 F 01/04/25 12:24 Pulse Rate 80 01/04/25 12:24 Respiratory Rate 16 01/04/25 12:24 Blood Pressure 114/68 01/04/25 12:24 Pulse Oximetry 100 01/04/25 12:24 Reviewed MDM - Extremity Injury (Lower) MDM Narrative Medical decision making narrative: Patient sitting in exam room. Patient presents with 4th and 5th toe pain just prior to arrival, injured it while kicking something. X-ray negative for fracture Patient appropriate for outpatient treatment with close follow-up Discharge instructions reviewed with patient, as well as provided in writing per nursing staff. The instructions also include specific and strict return/GO TO THE ER as well as f/u information. All questions have been answered, and the patient deny any further questions with discharge and discharge plan. Some parts of this dictation were generated by voice recognition software and may contain typographical and/or grammatical inaccuracies. Differential Diagnosis Differential diagnosis: Likely other (Toe fracture, toe sprain, toe contusion) Imaging Data Radiologist's impression: EXAMINATION: XR foot LT min 3V DATE: 01/04/2025 12:36 INDICATION: Pain at the fourth and fifth toes after kicking injury TECHNIQUE: Dorsoplantar, two oblique and lateral views of the left foot were obtained. COMPARISON: None. FINDINGS: Alignment is normal. No fracture. Joint spaces are normal. Bone island at the anterior calcaneus. Soft tissues are unremarkable. IMPRESSION: 1. No acute osseous abnormality. Critical Care Time Critical Care Time Critical Care Time: No Discharge Plan Discharge Clinical Impression: Pain and swelling of toe of left foot Patient Disposition: Home Condition: Stable Instructions: Antibiotic Form, Foot Sprain (ED) Additional Instructions: Your Xray did not show a fracture. Wear good supportive shoes at all times. Ice should be applied to help reduce swelling. It can be used for 20 to 30 minutes, every 2-3 hours while awake. Do not apply ice directly to your skin. You can alternate ibuprofen 600mg and Tylenol 650mg every 4 hours as needed for pain Please schedule a follow-up visit with your personal physician for further evaluation and treatment within 2 weeks especially if symptoms persist. For new or worsening symptoms go directly to the emergency room Patient Language: Lao Prescriptions: No Action diclofenac potassium 50 mg tablet 50 mg PO TID PRN (Reason: pain) Qty: 21 0RF venlafaxine [Effexor XR] 37.5 mg capsule,extended release 24hr 37.5 mg PO QPM Qty: 90 1RF azithromycin 250 mg tablet See Rx Instructions PO .COMPLEX Qty: 6 0RF Rx Instructions: For 250 mg dose pack: take 500 mg today (day 1), then 250 mg for 4 days (days 2-5) PO Follow-up/Referrals: Pérez,Dave [Other] - 1 Week ([facility] care follow up) Time of Disposition: 13:46
[2025-01-04 12:24] VITALS: BP 114/68; PULSE 80; RESP 16; TEMP 36.7; O2SAT 100
== END 2025-01-04 14:02 | disposition home or self-care (01) ==
PROVIDERS: Emergency Provider Nurse Practitioner
DX: M79.675 Pain in left toe(s) (principal); M79.89 Other specified soft tissue disorders
CPT/HCPCS: 73630; 99213; G0463